=== PATIENT | female | born 1925 | race Caucasian/White ===

== ENCOUNTER 2017-07-22 14:27 | Inpatient (IN) ==
[2017-07-22] MEDS ORDERED: Pantoprazole 40 MG VIAL IVP SCH (18:00)
[2017-07-22] MEDS: Ondansetron 4 MG/2 ML VIAL IVP PRN (18:41)
[2017-07-22] MEDS: *HR* OxyCODONE ER (12 HR) 20 MG TABLET PO SCH (19:41)
[2017-07-22] MEDS ORDERED: *HR* Dabigatran 75 MG CAPSULE PO SCH (21:00)
[2017-07-22] MEDS ORDERED: Mesalamine 250 MG CAPSULE.ER PO ONE (21:30)
[2017-07-22] MEDS ORDERED: Naloxone 0.4 MG/ML INJ IVP PRN (21:39)
[2017-07-22] MEDS: *HR* Amiodarone 200 MG TABLET PO SCH (21:39)
[2017-07-22] MEDS: Ranolazine 500 MG TAB.ER.12H PO SCH (21:40)
[2017-07-22] MEDS: Sennosides/Docusate Sodium TABLET PO SCH (21:40)
--- NOTE | 2017-07-22 22:01 | Internal Med History&Physical ---
Date of Encounter: 07/22/17 Time of Encounter: 18:00 Assessment and Plan (1) Abdominal pain Current visit: Yes Status: Acute Patient presents with report of abdominal pain for the past two months with much worse symptoms within the past three days. Patient states she is barely eating anything due to current N/V. Nutrition consult ordered. NPO status. Will advance diet as tolerated. Patient and daughter report hx of esophagela stricture. Discussed the possibility of an NG tube with the patient and daughter , however patient does not want NG tube at this time. GI consult ordered. Patient is at high risk for further morbidity based on current symptoms and history of GI problems and will be placed as observation status. Qualifiers: Abdominal location: lower abdomen, unspecified Qualified Code(s): R10.30 - Lower abdominal pain, unspecified (2) Intractable nausea and vomiting Current visit: Yes Status: Acute Acute nausea and vomiting for the past three days. CT of the abdomen/pelvis shows no acute abnormality. Diverticulosis. Severe atherosclerosis. Patient to be NPO. IVP Zofran Q6 PRN. GI consult ordered due to patient's hx of esophageal strictures which required procedure to stretch several times. Qualifiers: Vomiting type: cyclical vomiting Qualified Code(s): G43.A1 - Cyclical vomiting, intractable (3) Atrial fibrillation with RVR Current visit: Yes Status: Acute Hx of chronic atrial fibrillation with current acute episodes due to current vomiting. IVP Zofran Q6 PRN. Will continue patient's Pacerone and Ranexa. (4) Colitis Current visit: Yes Status: Chronic Hx of colitis and chronic constipation. Continue patient's mesalamine. (5) GERD (gastroesophageal reflux disease) Current visit: Yes Status: Chronic Hx of chronic gastroesophageal reflux disease. IVP Protonix 40 mg twice a day and IVP Zofran every 6 when necessary. Qualifiers: Esophagitis presence: esophagitis presence not specified Qualified Code(s) : K21.9 - Gastro-esophageal reflux disease without esophagitis (6) CKD (chronic kidney disease) stage 4, GFR 15-29 ml/min Current visit: Yes Status: Chronic Patient presents with GFR of 22 and hx of CKD stage 4. Will use IV fluids judiciously if warranted and avoid nephrotoxic agents. (7) CAD (coronary artery disease) Current visit: Yes Status: Chronic Hx of CAD and two CABG in 1985 and 2000. Patient denies stent placement. Patient placed on continuous cardiac telemetry. Will continue patient's Pradaxa , pravastatin, Pacerone, Ranexa, Lopressor, Imdur, and aspirin therapy. Qualifiers: Coronary Disease-Associated Artery/Lesion type: [place] artery [place] vs. transplanted heart: [place] heart Associated angina: angina presence unspecified Qualified Code(s): I25.10 - Atherosclerotic heart disease of [place] coronary artery without angina pectoris (8) Thyroid disease Current visit: Yes Status: Chronic Hx of chronic thyroid disease. Will continue patient's Synthroid. (9) DVT prophylaxis Current visit: Yes Status: Acute Will continue patient's Pradaxa for DVT prophylaxis. Internal Medicine - H&P: HPI Chief complaint: Abdominal pain/Afib w/RVR Admitted From: Intrahospital Transfer Plans for Post Hospital Care: Home History of present illness: Ms. Wagner is a 89 year old female with medical history of atrial fibrillation, CAD, CHF, GERD, colitis, CTD stage IV, and previous AK presents from [place] [facility] with chief complaint of severe abdominal pain, nausea, vomiting, and A. fib with RVR for the past 3 days. Patient states her stomach has been hurting for approximately 2 months and she has a history of chronic constipation with last bowel movement on Thursday which she describes as slimy and pasty. Patient also reports that her appetite has been severely diminished over the past 3-4 weeks. Patient denies recent illness, fever, chills, chest pain, shortness of breath, unusual bleeding, changes in vision, diarrhea, urinary symptoms, lightheadedness, dizziness, presyncope, or syncope. Past Med Surg Social Fam HX - Past Medical History Source: patient, old records reviewed, obtained from family Medical history: arthritis, atrial fibrillation, coronary artery disease, GERD, hyperlipidemia, hypertension, myocardial infarction, thyroid disease Psychiatric history: no psych history - Past Surgical History Surgical History: coronary bypass (CABG) (1985 and 2000) - Social History Smoking Status: Never smoker Alcohol use: none Drug use: none Current living situation: Home, With Family Activity Level: Independent ambulation, Uses cane/walker Recent Out of Country Travel Within the Last 8 Weeks: No Exposure or Possible Exposure to Illness During Travel: No - Family History Father Race: Family Member Ethnicity: Non- Living Status: Age at : 74 Cause of : [place] Hx Family Cardiac Disorders: Yes ([place], CAD, HTN) Hx Family GI Disorders: Yes (IBS) Mother Race: Family Member Ethnicity: Non- Living Status: Age at : 79 Cause of : [place] Hx Family Cardiac Disorders: Yes ([place]) Brother Race: Family Member Ethnicity: Non- Living Status: Age at : 91 Cause of : [place] Hx Family Cardiac Disorders: Yes (AK) Sister Race: Family Member Ethnicity: Non- Living Status: Age at : 87 Cause of : [place] Hx Family Cardiac Disorders: Yes ([place]) Internal Medicine - H&P: Meds Amiodarone HCl [Pacerone] 100 mg PO BID 07/22/17 [History] Aspirin [Lo-Dose Aspirin EC] 81 mg PO DAILY 07/22/17 [History] Dabigatran [Pradaxa] 75 mg PO BID 07/22/17 [History] Furosemide [Lasix] 20 mg PO DAILY 07/22/17 [History] Isosorbide MONOnitrate (24 HR) [Imdur] 30 mg PO DAILY 07/22/17 [History] Lansoprazole [Prevacid] 30 mg PO BID 07/22/17 [History] Levothyroxine [Synthroid] 75 mcg PO 0630 07/22/17 [History] Loratadine [Claritin] 10 mg PO DAILY 07/22/17 [History] Mesalamine [Delzicol] 400 mg PO BID 07/22/17 [History] Metoprolol Tartrate [Lopressor] 25 mg PO DAILY 07/22/17 [History] Naloxegol Oxalate [Movantik] 12.5 mg PO DAILY 07/22/17 [History] OxyCODONE ER (12 HR) [OxyCONTIN] 20 mg PO Q8HR 07/22/17 [History] Pravastatin Sodium [Pravachol] 80 mg PO DAILY 07/22/17 [History] Ranolazine [Ranexa] 500 mg PO BID 07/22/17 [History] Sennosides/Docusate Sodium [Stool Softener Tablet] 1 each PO BID 07/22/17 [ History] 3 Allergy/AdvReac Type Severity Reaction Status Date / Time lorazepam [From Ativan] Allergy Hallucinati Verified 07/22/17 10:57 ng promethazine [From Phenergan] Allergy See Verified 07/22/17 10:56 Comments acetaminophen AdvReac See Verified 07/22/17 10:57 [From Darvocet-N] Comments propoxyphene AdvReac See Verified 07/22/17 10:57 [From Darvocet-N] Comments All Systems PM: A 10-system review of systems was performed and is negative for pertinent findings except as documented above in the HPI. - Constitutional Constitutional: weakness, no chills, no fever(s), no night sweats - EENT Eyes: no change in vision, no discharge, no pain, no photophobia Ears: no ear discharge, no ear pain, no tinnitus Nose, mouth and throat: no dysphagia, no nasal discharge, no neck pain, no sore throat - Breasts Breasts: as per HPI - Cardiovascular Cardiovascular ROS IM: as per HPI, irregular heart rhythm, no chest pain, no diaphoresis, no dyspnea, no lightheadedness, no palpitations, no syncope - Respiratory Respiratory: no cough, no dyspnea, no wheezing, no excessive phlegm production - Gastrointestinal Gastrointestinal: as per HPI, abdominal pain, constipation (Chronic), nausea, vomiting - Genitourinary Genitourinary: no change in urinary stream, no dysuria, no flank pain, no hematuria Menstruation: as per HPI - Musculoskeletal Musculoskeletal ROS IM: no numbness, no tingling - Integumentary Integumentary IM: no rash, no unusual bruising - Neurological Neurological ROS: no confusion, no convulsions, no focal weakness, no numbness, no tingling, no tremor(s) - Psychiatric Psychiatric: as per HPI - Endocrine Endocrine IM: as per HPI - Hematologic/Lymphatic Hematologic/Lymphatic: no easy bruising - Allergic/Immunologic Allergic/Immunologic: as per HPI - Constitutional Vitals: Temp Pulse Resp BP Pulse Ox 98.4 F 85 16 155/80 98 07/22/17 19:12 07/22/17 19:12 07/22/17 19:12 07/22/17 19:12 07/22/17 19:12 General appearance: Present: cooperative, A&O X 3, pleasant, severe distress, answers questions appropriately - Head Head exam: Present: atraumatic, normocephalic - Eye Eye exam: Present: PERRL, conjuntiva pink, sclera anicteric Pupils: Present: PERRL - ENT ENT exam: Present: normal exam, normal external ear exam - Neck Neck exam general surgery: Present: normal inspection, supple, trachea midline. Absent: lymphadenopathy - Cardiovascular Cardiovascular exam: Present: irregular rhythm - GI/Abdominal GI/Abdominal exam: Present: guarding, normal bowel sounds, soft, tenderness, no peritoneal signs. Absent: distended - Rectal Rectal exam: Present: deferred - Additional comments: exam deferred. - Extremities Exam Extremities exam: Present: warm, radial pulses palpable and symmetrical. Absent : calf tenderness, cyanotic, pedal edema - Back Exam Back exam: Present: normal inspection - Neurological Exam Neurological exam: Present: CN II-XII intact, oriented X3, no focal deficits. Absent: pronater drift, facial droop, speech deficit - Psychiatric Psychiatric exam: Present: normal affect, normal mood - Skin Skin exam: Present: dry, intact Internal Med - H&P Results - Labs CBC & Chem 7: 07/22/17 21:47 - EKG Data EKG shows normal: sinus rhythm - EKG Data Prior EKG available for review: no EKG comments: 07/22/17 22:07 EKG dated 07/22/17 shows sinus rhythm with occasional supraventricular premature complexes, marked right axis deviation, and right bundle branch block. - Diagnostic Studies Chest x-ray Additional comments: 1-View CXR today shows low lung volumes. There is elevation of the right hemidiaphragm. No focal lung infiltrate. No pleural effusion. Platelike atelectasis is noted in the left mid lung field. CT scan - abdomen Additional comments: CT of the abdomen/pelvis today without contrast shows no acute abnormality in the abdomen/pelvis. Diverticulosis. Severe atherosclerosis.
[2017-07-22 22:07] LABS: Albumin 3.1 g/dL (3.5-5.0); Albumin/Globulin Ratio 0.9 (1.1-2.2); Bilirubin,Total 0.8 mg/dL (0.2-1.2); Globulin 3.4 g/dL (2.4-3.5); Total Protein 6.5 g/dL (6.0-8.3)
[2017-07-22] MEDS: Pantoprazole 40 MG VIAL IVP SCH (22:36)
[2017-07-22] MEDS: Lactulose Oral Soln 20 GM/30 ML UDC PO SCH (22:36)
[2017-07-22] MEDS ORDERED: Ondansetron 4 MG/2 ML VIAL IVP ONE (22:46)
[2017-07-23] MEDS ORDERED: *HR* OxyCODONE ER (12 HR) 20 MG TABLET PO SCH
[2017-07-23 00:45] LABS: Bilirubin,Urine Negative (Negative); Blood,Urine Negative (Negative); Clarity,Urine Clear (Clear); Color,Urine Yellow (Yellow); Glucose,Urine (UA) Normal (Normal); Ketones,Urine Negative (Negative); Leukocyte Esterase,Urine Trace (Negative); Nitrite,Urine Negative (Negative); PH,Urine 7.5 pH Units (5.0-8.0); Protein,Urine Trace mg/dL (Neg-Trace); Specific Gravity,Urine 1.017 (1.010-1.025); Urobilinogen,Urine Normal (Normal)
[2017-07-23 00:48] LABS: Bacteria,Urine None Seen per hpf (None-Few); Hyaline Casts,Urine None Seen per lpf (None-Few); RBC,Urine 0-3 per hpf (0-3); Squamous Epithelial Cell,Urine Moderate per lpf (None-Few)
[2017-07-23] MEDS ORDERED: Calcium Gluconate 1,000 MG in D5% in Water 100 ML IVPB ONE (01:40)
--- NOTE | 2017-07-23 01:45 | Event Note ---
Date of Encounter: 07/23/17 Time of Encounter: 01:41 Patient seen and examined with nurse practitioner. Atrial fibrillation with rapid ventricular response currently rate is better controlled with pushes great -looking medications. She has episodes of vomiting related to food and has prior stricture esophagus. Hold pradaxa and GI consultation for further evaluation. She is hyperkalemic and this will be treated
[2017-07-23] MEDS: 0.9 % Sodium Chloride 500 ML IVC SCH (02:12)
[2017-07-23] MEDS: *HR* OxyCODONE ER (12 HR) 20 MG TABLET PO SCH ×2 (02:17→21:16)
[2017-07-23 05:37] LABS: Basophils % 0.5 %; Eosinophils # 0.1 K/mcL (0.0-0.6); Eosinophils % 1.1 %; Hematocrit 31.1 % (35.3-44.9); Hemoglobin 9.4 g/dL (11.5-15.4); Immature Granulocytes % 0.4 % (0-4); Lymphocytes # 0.7 K/mcL (0.6-4.6); Lymphocytes % 12.9 %; Mean Corpuscular HGB Conc 30.2 g/dL (31.6-35.5); Mean Corpuscular Hemoglobin 24.2 pg (28.0-33.3); Mean Corpuscular Volume 80.2 fL (83.0-100.0); Monocytes # 0.6 K/mcL (0.0-1.3); Monocytes % 9.7 %; Neutrophils # 4.3 K/mcL (1.6-8.9); Nucleated Red Blood Cells 0.4 /100 WBC (0); Platelet Count 136 K/mcL (140-400); Red Blood Count 3.88 M/mcL (3.82-4.97); Red Cell Distribution Width 18.6 % (11.5-14.5); Segmented Neutrophils % 75.4 %
[2017-07-23 05:42] LABS: INR 1.3; Prothrombin Time 14.4 Seconds (9.4-12.1)
[2017-07-23 05:44] LABS: Activated Partial Thrombo Time 47.4 Seconds (26.0-36.0)
[2017-07-23 05:45] LABS: Hemoglobin A1C 5.7 %
[2017-07-23 05:52] LABS: Magnesium 1.9 mg/dL (1.6-2.6)
[2017-07-23 06:01] LABS: Calcium 9.3 mg/dL (8.6-10.8)
[2017-07-23 06:38] LABS: Chol/HDL Ratio 3.3 (0-4.9)
[2017-07-23] MEDS: Sennosides/Docusate Sodium TABLET PO SCH ×2 (08:56→21:15)
[2017-07-23] MEDS: Ranolazine 500 MG TAB.ER.12H PO SCH ×2 (08:56→21:14)
[2017-07-23] MEDS: *HR* Amiodarone 200 MG TABLET PO SCH ×2 (08:56→21:16)
[2017-07-23] MEDS: Isosorbide MONOnitrate (24 HR) 30 MG TAB.ER.24H PO SCH (08:56)
[2017-07-23] MEDS: Loratadine 10 MG TABLET PO SCH (08:56)
[2017-07-23] MEDS: Aspirin Enteric Coated 81 MG Tablet PO SCH (08:57)
[2017-07-23] MEDS: Pantoprazole 40 MG VIAL IVP SCH ×2 (08:57→18:46)
[2017-07-23] MEDS ORDERED: Furosemide 20 MG TABLET PO SCH (09:00)
--- NOTE | 2017-07-23 12:50 | Gastroenterology Consult Note ---
<Flako Delaney - Last Filed: 07/23/17 12:48> Date of Encounter: 07/23/17 Time of Encounter: 11:10 - Assessment and plan (1) Dysphagia Current Visit: Yes Status: Acute Assessment and plan: Pt with difficulty swallowing solids. Plan for EGD with possible dilation today. Keep NPO. Qualifiers: Dysphagia type: unspecified Qualified Code(s): R13.10 - Dysphagia, unspecified (2) Nausea & vomiting Current Visit: Yes Status: Acute Assessment and plan: Continue PPI and antiemetics. Plan for EGD today. Qualifiers: Vomiting type: unspecified Vomiting Intractability: non-intractable Qualified Code(s): R11.2 - Nausea with vomiting, unspecified (3) Abdominal pain Current Visit: Yes Status: Acute Assessment and plan: Continue PPI and plan for EGD today to r/o esophagitis, gastritis, duodenitis, PUD, MW tear, or AVM. Qualifiers: Abdominal location: lower abdomen, unspecified Qualified Code(s): R10.30 - Lower abdominal pain, unspecified (4) GERD (gastroesophageal reflux disease) Current Visit: Yes Status: Chronic Qualifiers: Esophagitis presence: esophagitis presence not specified Qualified Code(s) : K21.9 - Gastro-esophageal reflux disease without esophagitis (5) Constipation Current Visit: Yes Status: Acute Assessment and plan: Start daily fiber supplement and MiraLAX twice a day PRN Qualifiers: Constipation type: unspecified constipation type Qualified Code(s): K59.00 - Constipation, unspecified - Time Spent With Patient Total time spent is greater than 50% in coordination of care (as documented) at patient's floor/unit and/or counseling patient: GI History of Present Illness - Data of Consult Patient: new to practice Consult date: 07/23/17 Requesting Physician: Orly Lujan CNP - Consult Narrative Reason for consult: Nausea and vomiting History of present illness: Ms. Wagner is a 89 year old female with PMHx of arthritis, Afib, CAD, GERD, HLD, HTN, [place], who presented from [place] ED with c/o abdominal pain, nausea, and vomiting. She reports abdominal pain started 2 months ago. She reports history of constipation with last BM on Thursday. She also states her appetite has been decreased over the past 3-4 weeks. She denies fever, chills, chest pain, SOB, hematemesis, diarrhea, melena, or hematochezia. She has been having nausea and occasional vomiting as well. She reports difficulty swallowing solids but is able to swallow liquids. She has been using Ensure supplements. Procedures: No record NSAIDs: ASA Anticoagulation: Pradaxa Past Med Surg Social Fam HX - Past Medical History Medical history: arthritis, atrial fibrillation, coronary artery disease, GERD, hyperlipidemia, hypertension, myocardial infarction, thyroid disease Psychiatric history: no psych history - Past Surgical History Surgical History: coronary bypass (CABG) (1985 and 2000) - Social History Smoking Status: Never smoker Alcohol use: none Drug use: none - Family History Father Race: Family Member Ethnicity: Non- Living Status: Age at : 74 Cause of : [place] Hx Family Cardiac Disorders: Yes ([place], CAD, HTN) Hx Family GI Disorders: Yes (IBS) Mother Race: Family Member Ethnicity: Non- Living Status: Age at : 79 Cause of : [place] Hx Family Cardiac Disorders: Yes ([place]) Brother Race: Family Member Ethnicity: Non- Living Status: Age at : 91 Cause of : [place] Hx Family Cardiac Disorders: Yes ([place]) Sister Race: Family Member Ethnicity: Non- Living Status: Age at : 87 Cause of : [place] Hx Family Cardiac Disorders: Yes ([place]) - Gastrointestinal Gastrointestinal: Present: as per HPI - Constitutional Constitutional: as per HPI - EENT Eyes: as per HPI Ears: Present: as per HPI Nose, mouth and throat: Present: as per HPI - Cardiovascular Cardiovascular ROS: Present: as per HPI - Respiratory Respiratory IM: Present: as per HPI - Genitourinary Genitourinary: Absent: change in color, Urinary frequency - Neurological ROS Neurological GI: Present: as per HPI - Hematologic/Lymphatic Hematologic/Lymphatic pediatric: Present: as per HPI - Musculoskeletal Musculoskeletal ROS GI: Present: as per HPI - Integumentary Integumentary GI: Present: as per HPI - Psychiatric ROS Psychiatric GI: Present: as per HPI - Endocrine Endocrine IM: Present: as per HPI - Constitutional Vitals: Temp Pulse Resp BP Pulse Ox 97.6 F 80 16 159/74 98 07/23/17 11:40 07/23/17 11:40 07/23/17 11:40 07/23/17 11:40 07/23/17 11:40 General appearance: Present: cooperative, A&O X 3, no acute distress, answers questions appropriately - Head Head exam: Present: atraumatic, normocephalic - Eye Eye exam: Present: normal appearance, sclera anicteric - ENT ENT exam: Present: mucous membranes dry - Neck Neck exam general surgery: Present: normal inspection, trachea midline - Respiratory Respiratory exam: Present: decreased breath sounds, CTAB - Cardiovascular Cardiovascular exam: Present: RRR, +S1, +S2 - GI/Abdominal GI/Abdominal exam: Present: soft, tenderness, no peritoneal signs. Absent: distended, firm, guarding - Rectal Rectal exam: Present: deferred - Extremities Exam Extremities exam: Present: warm - Neurological Exam Neurological exam: Present: no focal deficits - Psychiatric Psychiatric exam: Present: normal affect, normal mood - Skin Skin exam: Present: dry, intact, normal color, warm Results - Labs CBC & Chem 7: 07/23/17 03:42 07/23/17 03:42 Labs: Last Result ESR 59 mm/hr (0-15) H 07/22/17 21:47 Calcium 9.3 mg/dL (8.6-10.8) 07/23/17 03:42 C-Reactive Protein 10 mg/L (Less than 5) H 07/22/17 21:47 Triglycerides 79 mg/dL (< 150) 07/23/17 03:42 Entire Visit Hgb 9.4 g/dL (11.5-15.4) L D 07/23/17 03:42 Hct 31.1 % (35.3-44.9) L 07/23/17 03:42 PT 14.4 Seconds (9.4-12.1) H 07/23/17 03:42 Total Bilirubin 0.8 mg/dL (0.2-1.2) 07/22/17 21:47 AST 41 Units/L (5-34) H 07/22/17 21:47 ALT 44 Units/L (0-55) 07/22/17 21:47 Amylase 48 Units/L (25-125) 07/22/17 21:47 Lipase 28 Units/L (8-78) 07/22/17 21:47 - ABG ABG results: PT/INR, D-dimer PT 14.4 Seconds (9.4-12.1) H 07/23/17 03:42 Consult Discharge Plan - Plan Referrals: Alexandra Lugo CNP [Advanced Practice Nurse] - 08/07/17 10:30 am Nick Unger DO [Non-Partnered Physician] - 10/07/17 9:30 am <Emily Bui - Last Filed: 07/23/17 18:23> Date of Encounter: 07/23/17 Time of Encounter: 18:00 - Time Spent With Patient Total time spent is greater than 50% in coordination of care (as documented) at patient's floor/unit and/or counseling patient: GI History of Present Illness - Data of Consult Requesting Physician: Orly Lujan CNP - Consult Narrative History of present illness: Ms. Wagner is a 89 year old female - Constitutional Vitals: Temp Pulse Resp BP Pulse Ox 98.0 F 80 16 168/99 94 07/23/17 17:52 07/23/17 17:52 07/23/17 17:52 07/23/17 17:52 07/23/17 17:52 Results - Labs CBC & Chem 7: 07/23/17 03:42 07/23/17 03:42 Labs: Last Result ESR 59 mm/hr (0-15) H 07/22/17 21:47 Calcium 9.3 mg/dL (8.6-10.8) 07/23/17 03:42 C-Reactive Protein 10 mg/L (Less than 5) H 07/22/17 21:47 Triglycerides 79 mg/dL (< 150) 07/23/17 03:42 Entire Visit Hgb 9.4 g/dL (11.5-15.4) L D 07/23/17 03:42 Hct 31.1 % (35.3-44.9) L 07/23/17 03:42 PT 14.4 Seconds (9.4-12.1) H 07/23/17 03:42 Total Bilirubin 0.8 mg/dL (0.2-1.2) 07/22/17 21:47 AST 41 Units/L (5-34) H 07/22/17 21:47 ALT 44 Units/L (0-55) 07/22/17 21:47 Amylase 48 Units/L (25-125) 07/22/17 21:47 Lipase 28 Units/L (8-78) 07/22/17 21:47 - ABG ABG results: PT/INR, D-dimer PT 14.4 Seconds (9.4-12.1) H 07/23/17 03:42 - Attending Attestation I examined this patient and my medical decision-making was reviewed with the Resident Physician. I agree with the documented findings, disposition and treatment plan as described except to the extent set forth below.
--- NOTE | 2017-07-23 13:46 | Cardiology Consult Note ---
Date of Encounter: 07/23/17 Time of Encounter: 13:00 Assessment and Plan (1) Nausea & vomiting Current Visit: Yes Status: Acute Per cardiology: -Admitted with nausea and vomiting. -Reports poor oral intake at home. -History of esophageal stricture. -GI consulted and plan for EGD. -Management per primary and GI services. Qualifiers: Vomiting type: unspecified Vomiting Intractability: non-intractable Qualified Code(s): R11.2 - Nausea with vomiting, unspecified (2) Atrial tachycardia Current Visit: Yes Status: Acute Per cardiology: -Admitted for intractable nausea and vomiting. -Telemetry reviewed with episodes of tachycardia noted. -Tele strips reviewed with and Dr.John Grissom and noted to be atrial tachycardia. -Patient reports feels short of breath when tachycardic. -On lopressor 25mg daily (BID at home) and amiodarone 100mg BID. -Will increase lopressor to 25mg TID. (3) Atrial fibrillation Current Visit: Yes Status: Chronic Per cardiology: -Known PAF. -ON amiodarone and beta jesus. -ON pradaxa for anticoagulation (currently on hold for EGD). Chads 2 vasc score 6 (age, gender, HTN, vascular disease, and CHF). -Average HR per telemetry noted to be 87, sinus rhythm. Intermittent atrial tachycardia noted. -Patient reports previously followed with cardiology in [place]. -Will obtain records from previous cardiology. Qualifiers: Atrial fibrillation type: paroxysmal Qualified Code(s): I48.0 - Paroxysmal atrial fibrillation (4) CAD (coronary artery disease) Current Visit: Yes Status: Chronic Per cardiology: -Known CAD. Patient reports CABG and repeat CABG in [place]. -Denies chest pain. -On asa, statin, beta jesus, imdur, and ranexa. -Reports recent stress and echo. -Will obtain records from previous cardiology. Qualifiers: Coronary Disease-Associated Artery/Lesion type: [place] artery [place] vs. transplanted heart: [place] heart Associated angina: without angina Qualified Code(s): I25.10 - Atherosclerotic heart disease of [place] coronary artery without angina pectoris (5) CKD (chronic kidney disease) stage 4, GFR 15-29 ml/min Current Visit: Yes Status: Chronic Per cardiology: -Patient reports known CKD. -Creatinine on admission 2.09. -Creatinine today 1.66. -Management per primary service. Discussion w patient/family: The assessment and plan as outlined above was discussed with the patient and/or family members who expressed understanding and agreement. All questions were answered. Thank you for involving us in the care of your patient. Please call with any questions. Discussed and reviewed with . History of Present Illness Consult date: 07/23/17 Requesting physician: Orly Lujan Consult reason: a.fib RVR Chief complaint: nausea, vomiting History of present illness: Ms. Wagner is a 89 year old female with a relevant past medical history of CO , CAD s/p CABG and repeat CABG, atrial fibrillation, CHF, GERD, CKD, and esophageal stricture. Patient is from [place] and recently moved to [place], [place] to live with her daughter. Patient presented to [facility] with complaints of nausea and vomiting. Patient states this is similar to when she had previous esophageal strictures. During hospital stay, patient was noted to have intermittent atrial fibrillation with RVR. Cardiology has been consulted. Patient reports known history of atrial fibrillation. Patient also reports was recently admitted to [facility] 9 days ago. Patient and daughter report had a.fib RVR during recent admission and state was difficult to rate control. Patient states when she is in a.fib she feels short of breath. Denies palpitations or fluttering. Patient denies chest pain. Patient states has noticed worsening fatigue over the past 6 months. Of note, GI plans for EGD today. Past Med Surg Social Fam HX - Past Medical History Attestation: Yes The following information was validated with the patient. Source: patient, old records reviewed, obtained from family Medical history: arthritis, atrial fibrillation, coronary artery disease, GERD, hyperlipidemia, hypertension, myocardial infarction, thyroid disease Psychiatric history: no psych history - Past Surgical History Surgical History: coronary bypass (CABG) (1985 and 2000) - Social History Smoking Status: Never smoker Alcohol use: none Drug use: none - Family History Father Race: Family Member Ethnicity: Non- Living Status: Age at : 74 Cause of : CO Hx Family Cardiac Disorders: Yes ([place], CAD, HTN) Hx Family GI Disorders: Yes (IBS) Mother Race: Family Member Ethnicity: Non- Living Status: Age at : 79 Cause of : [place] Hx Family Cardiac Disorders: Yes (CO) Brother Race: Family Member Ethnicity: Non- Living Status: Age at : 91 Cause of : [place] Hx Family Cardiac Disorders: Yes (CO) Sister Race: Family Member Ethnicity: Non- Living Status: Age at : 87 Cause of : [place] Hx Family Cardiac Disorders: Yes (CO) Medications and Allergies Amiodarone HCl [Pacerone] 100 mg PO BID 07/22/17 [History] Aspirin [Lo-Dose Aspirin EC] 81 mg PO DAILY 07/22/17 [History] Dabigatran [Pradaxa] 75 mg PO BID 07/22/17 [History] Furosemide [Lasix] 20 mg PO DAILY 07/22/17 [History] Isosorbide MONOnitrate (24 HR) [Imdur] 30 mg PO DAILY 07/22/17 [History] Lansoprazole [Prevacid] 30 mg PO BID 07/22/17 [History] Levothyroxine [Synthroid] 75 mcg PO QAM 07/22/17 [History] Loratadine [Claritin] 10 mg PO DAILY 07/22/17 [History] Mesalamine [Delzicol] 400 mg PO BID 07/22/17 [History] Metoprolol Tartrate [Lopressor] 25 mg PO BID 07/22/17 [History] Naloxegol Oxalate [Movantik] 12.5 mg PO DAILY 07/22/17 [History] OxyCODONE ER (12 HR) [OxyCONTIN] 20 mg PO Q8HR 07/22/17 [History] Pravastatin Sodium [Pravachol] 80 mg PO DAILY 07/22/17 [History] Ranolazine [Ranexa] 500 mg PO BID 07/22/17 [History] Sennosides/Docusate Sodium [Stool Softener Tablet] 1 each PO BID 07/22/17 [ History] 3 Allergy/AdvReac Type Severity Reaction Status Date / Time lorazepam [From Ativan] Allergy Hallucinati Verified 07/22/17 10:57 ng promethazine [From Phenergan] Allergy See Verified 07/22/17 10:56 Comments acetaminophen AdvReac See Verified 07/22/17 10:57 [From Darvocet-N] Comments propoxyphene AdvReac See Verified 07/22/17 10:57 [From Eveline] Comments All Systems Review: A 10-system review of systems was performed and is negative for pertinent findings except as documented above in the HPI. - Cardiovascular Cardiovascular: as per HPI, dyspnea at rest, dyspnea on exertion, irregular heart rhythm - Gastrointestinal Gastrointestinal: nausea Physical Examination Vital Signs, Last 4 Hours Temp Pulse Resp BP Pulse Ox 07/23/17 11:40 97.6 F 80 16 159/74 98 General: Conversant, No Apparent Distress HEENT: Atraumatic, Normocephaly, Mucus Membranes Moist Neck: No JVD, Normal carotid pulses Cardiac: Reg Rate and Rhythm, Normal S1 and S2, No Murmur Lungs: Normal Breath Sounds, No Wheeze, Rales, Rhonchi Neuro: Alert and responsive, No focal deficits noted Abdomen: Soft, Non-Tender Skin: No rashes noted on visualized skin Musculoskeletal: No Chest Wall Tenderness Extremities: No Clubbing, No Cyanosis, No Edema, Normal Pulses Results 07/23/17 03:42 07/23/17 03:42 Lab Results Active Medications Amiodarone HCl (Cordarone) 100 mg PO BID ELIA Stop: 01/21/18 21:01 Last Admin: 07/23/17 08:56 Dose: 100 mg Aspirin (Aspirin Ec) 81 mg PO DAILY ELIA Stop: 01/22/18 09:01 Last Admin: 07/23/17 08:57 Dose: 81 mg Atorvastatin Calcium (Lipitor) 20 mg PO DAILY ELIA Stop: 01/22/18 09:01 Last Admin: 07/23/17 08:55 Dose: 20 mg Sodium Chloride (0.9 % Sodium Chloride) 500 mls @ 40 mls/hr IVC .[id number] ELIA Stop: 01/22/18 01:46 Last Admin: 07/23/17 02:12 Dose: 40 mls/hr Isosorbide Mononitrate (Imdur) 30 mg PO DAILY ELIA Stop: 01/22/18 09:01 Last Admin: 07/23/17 08:56 Dose: 30 mg Lactulose (Lactulose) 20 gm PO HS ELIA Stop: 01/21/18 22:01 Last Admin: 07/22/17 22:36 Dose: 20 gm Levothyroxine Sodium (Synthroid) 75 mcg PO 0630 ELIA Stop: 01/22/18 06:31 Last Admin: 07/23/17 05:51 Dose: Not Given Loratadine (Claritin) 10 mg PO DAILY ELIA PRN Reason: Protocol Stop: 01/22/18 09:01 Last Admin: 07/23/17 08:56 Dose: 10 mg Naloxone HCl (Narcan) 0.4 mg IVP Q2MIN PRN PRN Reason: Opioid Reversal Stop: 01/21/18 21:40 Ondansetron HCl (Zofran) 4 mg IVP Q8HR PRN PRN Reason: Nausea And Vomiting Stop: 01/21/18 17:51 Last Admin: 07/22/17 18:41 Dose: 4 mg Oxycodone HCl (Oxycontin) 20 mg PO Q12HR ELIA Stop: 01/22/18 18:01 Pantoprazole Sodium (Protonix) 40 mg IVP BIDAC [facility] Stop: 01/21/18 21:48 Last Admin: 07/23/17 08:57 Dose: 40 mg Pharmacy Profile Note (Patient Taking Own Medication) 1 each PO BID [facility] Stop: 01/22/18 09:01 Ranolazine (Ranexa) 500 mg PO BID [facility] Stop: 01/21/18 21:01 Last Admin: 07/23/17 08:56 Dose: 500 mg Senna/Docusate Sodium (Senna Plus) 1 each PO BID ELIA PRN Reason: Protocol Stop: 01/21/18 21:01 Last Admin: 07/23/17 08:56 Dose: 1 each Laboratory Tests 07/22/17 07/22/17 07/23/17 11:18 21:47 03:42 Hgb 9.4 L D Potassium Creatinine 2.09 H 1.88 H Magnesium 07/23/17 07/23/17 03:42 03:42 Hgb Potassium 5.0 H Creatinine 1.66 H Magnesium 1.9 - Imaging and Cardiology Chest Xray: report reviewed - EKG Interpretation EKG results cardiology: personally reviewed (ECG with Sinus rhythm, bundle branch block.), other (Telemetry reviewed with average HR previous 12 hours noted to be 87, mostly SR with intermittent atrial fibrillation with RVR. PVCs noted.) Consult Discharge Plan - Plan Referrals: NONE,PCP [Primary Care Provider] -
--- NOTE | 2017-07-23 14:29 | Internal Med Progress Note ---
Date of Encounter: 07/23/17 Time of Encounter: 08:30 - Assessment and plan (1) Abdominal pain Current Visit: Yes Status: Acute Assessment and plan: Sigrid Avelar is a 89 y/o female with PMH atrial fibrillation, CKD, hypothyroidism and hypertension who presented to [facility] [place] on 07/22/2017 with complaints of nausea, vomiting and abdominal pain. She was placed in observation status for further workup and treatment. 1. Abdominal pain: Presented with abdominal pain and nausea vomiting for 4 days prior to presentation. Had recent admission to outside hospital for approx 9 days for similar sx's with no apparent cause found. Now with recurrent sx's although patient denies ABD pain. ABD CT unremarkable. Etiology unknown at this time; symptoms appear to wax and wane. Keep nothing by mouth. GI consulted 2. Atrial fibrillation: per hx. with intermittent rate control. Having breakthrough RVR with exertion. Continue home BB, amiodarone. Resume Pradaxa once EGD complete. Cardiology consulted for frequent breakthrough RVR 3. Esophageal stricture: per hx with dilations in the past. Now with difficulty tolerating PO. GI consulted. EGD planned for 07/23 4. CAD: with hx CABG. Denies chest pain. Cont home ASA, nitrate, BB, ranexa 5. CKD: per hx. Cr 2.9 at OSH, improved to 1.6 which is consistent with creatinine in 2016. Avoid nephrotoxic agents as possible. Intermittent monitor renal function. 6. DVT prophylaxis: Heparin. Resume home Pradaxa once cleared by GI. Qualifiers: Abdominal location: lower abdomen, unspecified Qualified Code(s): R10.30 - Lower abdominal pain, unspecified (2) Esophageal stricture Current Visit: Yes Status: Acute (3) Atrial fibrillation Current Visit: Yes Status: Acute Qualifiers: Atrial fibrillation type: chronic Qualified Code(s): I48.2 - Chronic atrial fibrillation (4) CAD (coronary artery disease) Current Visit: Yes Status: Chronic Qualifiers: Coronary Disease-Associated Artery/Lesion type: [place] artery [place] vs. transplanted heart: [place] heart Associated angina: angina presence unspecified Qualified Code(s): I25.10 - Atherosclerotic heart disease of [place] coronary artery without angina pectoris (5) DVT prophylaxis Current Visit: Yes Status: Acute - Subjective Interval history: Seen and examined at bedside. Patient is due to ma. Information obtained from chart review, patient and daughter at bedside. Dr. garner patient had long stay at [facility] for approximately week and a half rated patient was discharged to daughter's home 4 days ago and is now presenting with recurrent symptoms which are abdominal pain, nausea, vomiting and inability to tolerate by mouth. All my exam patient says she feels better. Has some abdominal tenderness but no pain. No nausea or vomiting. Able to take pills without difficulty. - Constitutional Vitals: Temp Pulse Resp BP Pulse Ox 97.6 F 80 16 159/74 98 07/23/17 11:40 07/23/17 11:40 07/23/17 11:40 07/23/17 11:40 07/23/17 11:40 General appearance: Present: cooperative, A&O X 3, pleasant, severe distress, answers questions appropriately - Head Head exam: Present: atraumatic, normocephalic - Eye Eye exam: Present: PERRL, conjuntiva pink, sclera anicteric Pupils: Present: PERRL - Neck Neck exam general surgery: Present: supple, trachea midline. Absent: lymphadenopathy - Respiratory Respiratory exam: Present: CTAB. Absent: accessory muscle use, rales, rhonchi, wheezes - Cardiovascular Cardiovascular exam: Present: +S1, +S2. Absent: diastolic murmur, gallop, irregular rhythm, rubs, systolic murmur, tachycardia - GI/Abdominal GI/Abdominal exam: Present: normal bowel sounds, soft, no peritoneal signs. Absent: distended, tenderness - Extremities Exam Extremities exam: Present: warm, radial pulses palpable and symmetrical. Absent : calf tenderness, cyanotic, pedal edema - Neurological Exam Neurological exam: Present: CN II-XII intact, oriented X3, no focal deficits. Absent: pronater drift, facial droop, speech deficit - Skin Skin exam: Present: dry, intact Internal Medicine: Result - Labs CBC & Chem 7: 07/23/17 03:42 07/23/17 03:42 Labs: Short CBC 07/23/17 Range/Units 03:42 WBC 5.7 (4.3-11.1) K/mcL Hgb 9.4 L D (11.5-15.4) g/dL Hct 31.1 L (35.3-44.9) % Plt Count 136 L (140-400) K/mcL Neutrophils # 4.3 (1.6-8.9) K/mcL BMP 07/22/17 07/23/17 21:47 03:42 Sodium 138 141 Potassium 5.0 H 5.0 H Chloride 100 101 Carbon Dioxide 29 32 H BUN 22 H 19 Creatinine 1.88 H 1.66 H Glucose 96 102 H Calcium 9.0 9.3 Liver Function 07/22/17 Range/Units 21:47 Total Bilirubin 0.8 (0.2-1.2) mg/dL AST 41 H (5-34) Units/L ALT 44 (0-55) Units/L Alkaline Phosphatase 85 (38-126) Units/L Albumin 3.1 L (3.5-5.0) g/dL Urine 07/23/17 Range/Units 00:30 Urine Color Yellow (Yellow) Urine Clarity Clear (Clear) Urine pH 7.5 (5.0-8.0) pH Units Ur Specific [place] 1.017 (1.010-1.025) Urine Protein Trace (Neg-Trace) mg/dL Urine Glucose (UA) Normal (Normal) mg/dL - ABG Interpretation ABG results: PT/INR, D-dimer PT 14.4 Seconds (9.4-12.1) H 07/23/17 03:42 Consult Discharge Plan - Plan Referrals: NONE,PCP [Primary Care Provider] -
--- NOTE | 2017-07-23 15:31 | Electrocardiograph Report ---
[address] [place], [place] [address] Test Date: 2017-07-22 Pat Name: Sigrid Wagner Department: 113 Room: 3B11 Gender: F Carton Filler: : 1925 Requested By: Orly Lujan Order Number: [id number] Reading MD: Rodolfo Grissom Measurements Intervals [place] Rate: 85 P: 90 WA: 154 QRS: 101 QRSD: 143 T: 0 QT: 405 QTc: 448 Interpretive Statements SINUS RHYTHM WITH OCCASIONAL SUPRAVENTRICULAR PREMATURE COMPLEXES MARKED RIGHT AXIS DEVIATION RIGHT BUNDLE BRANCH BLOCK Electronically Signed On 07-23-2017 15:30:03 EDT by Rodolfo Grissom
[2017-07-23] MEDS: MESALAMINE 400 MG PO SCH ×2 (15:40→21:15)
[2017-07-23] MEDS ORDERED: *HR* FentaNYL (PF) 100 MCG/2 ML VIAL ONE (17:50)
[2017-07-23] MEDS ORDERED: *HR* Midazolam HCl 5 MG/5 ML VIAL IVP ONE (17:50)
[2017-07-23] MEDS ORDERED: *HR* FentaNYL (PF) 100 MCG/2 ML VIAL IVP PRN (17:56)
[2017-07-23] MEDS ORDERED: *HR* Midazolam HCl 5 MG/5 ML VIAL IVP PRN (17:56)
[2017-07-23] MEDS ORDERED: Tetracaine/Benzocaine/Butamben 200MG/SPRAY (100SPY/BOT) MM ONE (17:56)
[2017-07-23] MEDS ORDERED: Simethicone 40 MG/0.6 ML MLS IR ONE (17:56)
[2017-07-23] MEDS ORDERED: *HR* Metoprolol 5 MG/5 ML VIAL IVP ONE ×2 (18:07→18:10)
[2017-07-23] MEDS: Lactulose Oral Soln 20 GM/30 ML UDC PO SCH (21:14)
[2017-07-23] MEDS: *HR* Heparin 5,000 UNIT/ML VIAL SQ SCH (22:52)
[2017-07-24] MEDS: Ondansetron 4 MG/2 ML VIAL IVP PRN (01:08)
[2017-07-24] MEDS ORDERED: 0.9 % Sodium Chloride 250 ML IVC ONE (01:28)
[2017-07-24] MEDS ORDERED: 0.9 % Sodium Chloride 250 ML ONE (01:34)
[2017-07-24 04:45] LABS: Basophils % 0.4 %; Eosinophils # 0.2 K/mcL (0.0-0.6); Eosinophils % 3.5 %; Hematocrit 29.8 % (35.3-44.9); Hemoglobin 8.9 g/dL (11.5-15.4); Immature Granulocytes % 0.4 % (0-4); Lymphocytes # 0.7 K/mcL (0.6-4.6); Lymphocytes % 14.7 %; Mean Corpuscular HGB Conc 29.9 g/dL (31.6-35.5); Mean Corpuscular Hemoglobin 24.1 pg (28.0-33.3); Mean Corpuscular Volume 80.5 fL (83.0-100.0); Monocytes # 0.5 K/mcL (0.0-1.3); Monocytes % 10.5 %; Neutrophils # 3.2 K/mcL (1.6-8.9); Platelet Count 132 K/mcL (140-400); Red Cell Distribution Width 18.4 % (11.5-14.5); Segmented Neutrophils % 70.5 %
[2017-07-24 05:00] LABS: Albumin 2.6 g/dL (3.5-5.0); Albumin/Globulin Ratio 0.8 (1.1-2.2); Bilirubin,Total 0.7 mg/dL (0.2-1.2); Calcium 8.6 mg/dL (8.6-10.8); Globulin 3.1 g/dL (2.4-3.5); Potassium 4.9 mEq/L (3.5-4.5); Total Protein 5.7 g/dL (6.0-8.3)
[2017-07-24] MEDS: *HR* Heparin 5,000 UNIT/ML VIAL SQ SCH ×2 (06:28→13:48)
[2017-07-24] MEDS: *HR* OxyCODONE ER (12 HR) 20 MG TABLET PO SCH ×2 (06:31→17:31)
[2017-07-24] MEDS: 0.9 % Sodium Chloride 500 ML IVC SCH (08:40)
[2017-07-24] MEDS: Sennosides/Docusate Sodium TABLET PO SCH (09:22)
--- NOTE | 2017-07-24 09:27 | Internal Med Progress Note ---
Date of Encounter: 07/24/17 Time of Encounter: 09:03 - Assessment and plan (1) Abdominal pain Current Visit: Yes Status: Acute Assessment and plan: Sigrid Wagner is a 89 y/o female with PMH atrial fibrillation, CKD, hypothyroidism and hypertension who presented to [facility] on 07/22/2017 with complaints of nausea, vomiting and abdominal pain. She was placed in observation status for further workup and treatment. 1. Abdominal pain: Presented with abdominal pain and nausea vomiting for 4 days prior to presentation. Had recent admission to outside hospital for approx 9 days for similar sx's with no apparent cause found. ABD CT unremarkable. Etiology unknown at this time; symptoms appear to wax and wane. 07/23/2017 EGD with diffuse gastric atrophy (biopsies taken). Cont IV PPI, advance diet as tolerated 2. Atrial fibrillation: per hx. with intermittent rate control. Having breakthrough RVR with exertion. Evaluated by Cardiology who increased BB to TID. Continue BB, amiodarone, pradaxa 3. Esophageal stricture: per hx with dilations in the past. Now with difficulty tolerating PO. EGD without evidence of stricture. Now tolerating PO without difficulty. 4. CAD: with hx CABG. Denies chest pain. Cont home ASA, nitrate, BB, ranexa 5. CKD: per hx. Cr 2.9 at OSH, improved to 1.6 which is consistent with creatinine in 2016. Avoid nephrotoxic agents as possible. Intermittent monitor renal function. 6. Chronic pain: per hx. On Oxycontin every 8 hours at home (OARRS verified and she does have active rx for TID Oxycontin). Daughter requesting Pain Management consult. Dose decreased to Q 12 hr until seen by Pain management. 7. Loose stool: in the setting of senna and lactulose. Hold laxatives, check c. diff if loose stools persist without laxatives. 8. DVT prophylaxis: Pradaxa. Qualifiers: Abdominal location: lower abdomen, unspecified Qualified Code(s): R10.30 - Lower abdominal pain, unspecified (2) Esophageal stricture Current Visit: Yes Status: Acute (3) Atrial fibrillation Current Visit: Yes Status: Chronic Qualifiers: Atrial fibrillation type: paroxysmal Qualified Code(s): I48.0 - Paroxysmal atrial fibrillation (4) CAD (coronary artery disease) Current Visit: Yes Status: Chronic Qualifiers: Coronary Disease-Associated Artery/Lesion type: [place] artery [place] vs. transplanted heart: [place] heart Associated angina: without angina Qualified Code(s): I25.10 - Atherosclerotic heart disease of [place] coronary artery without angina pectoris (5) DVT prophylaxis Current Visit: Yes Status: Acute - Subjective Interval history: Seen and examined at bedside. Patient says she feels better today, no abdominal pain. Says she wants to eat. Daughter at bedside and reports multiple loose, watery stools yesterday. Daughter is also requesting Pain management consult for chronic pain - Constitutional Vitals: Temp Pulse Resp BP Pulse Ox 97.7 F 77 14 135/69 100 07/24/17 07:15 07/24/17 07:15 07/24/17 07:15 07/24/17 07:15 07/24/17 07:15 General appearance: Present: cooperative, A&O X 3, pleasant, answers questions appropriately - Head Head exam: Present: atraumatic, normocephalic - Eye Eye exam: Present: PERRL, conjuntiva pink, sclera anicteric Pupils: Present: PERRL - Neck Neck exam general surgery: Present: supple, trachea midline. Absent: lymphadenopathy - Respiratory Respiratory exam: Present: CTAB. Absent: accessory muscle use, rales, rhonchi, wheezes - Cardiovascular Cardiovascular exam: Present: irregular rhythm, +S1, +S2. Absent: gallop, rubs Additional comments: + murmur - GI/Abdominal GI/Abdominal exam: Present: normal bowel sounds, soft, no peritoneal signs. Absent: distended, tenderness - Extremities Exam Extremities exam: Present: warm, radial pulses palpable and symmetrical. Absent : calf tenderness, cyanotic, pedal edema - Neurological Exam Neurological exam: Present: CN II-XII intact, oriented X3, no focal deficits. Absent: pronater drift, facial droop, speech deficit - Skin Skin exam: Present: dry, intact Internal Medicine: Result - Labs CBC & Chem 7: 07/24/17 04:11 07/24/17 04:11 Labs: Short CBC 07/24/17 Range/Units 04:11 WBC 4.6 (4.3-11.1) K/mcL Hgb 8.9 L (11.5-15.4) g/dL Hct 29.8 L (35.3-44.9) % Plt Count 132 L (140-400) K/mcL Neutrophils # 3.2 (1.6-8.9) K/mcL BMP 07/24/17 04:11 Sodium 137 Potassium 4.9 H Chloride 103 Carbon Dioxide 29 BUN 17 Creatinine 1.49 H Glucose 81 Calcium 8.6 Liver Function 07/24/17 Range/Units 04:11 Total Bilirubin 0.7 (0.2-1.2) mg/dL AST 26 (5-34) Units/L ALT 32 (0-55) Units/L Alkaline Phosphatase 70 (38-126) Units/L Albumin 2.6 L (3.5-5.0) g/dL - ABG Interpretation ABG results: PT/INR, D-dimer PT 14.4 Seconds (9.4-12.1) H 07/23/17 03:42 Consult Discharge Plan - Plan Referrals: Alexandra Lugo CNP [Advanced Practice Nurse] - 08/07/17 10:30 am Nick Unger DO [Non-Partnered Physician] - 10/07/17 9:30 am
[2017-07-24] MEDS: Pantoprazole 40 MG VIAL IVP SCH ×2 (09:29→17:31)
[2017-07-24] MEDS: Loratadine 10 MG TABLET PO SCH (09:30)
[2017-07-24] MEDS: MESALAMINE 400 MG PO SCH ×2 (09:30→20:10)
[2017-07-24] MEDS: *HR* Amiodarone 200 MG TABLET PO SCH ×2 (09:30→20:09)
[2017-07-24] MEDS: Aspirin Enteric Coated 81 MG Tablet PO SCH (09:30)
[2017-07-24] MEDS: Ranolazine 500 MG TAB.ER.12H PO SCH ×2 (09:30→20:09)
[2017-07-24] MEDS: Isosorbide MONOnitrate (24 HR) 30 MG TAB.ER.24H PO SCH (09:30)
--- NOTE | 2017-07-24 12:39 | Cardiology Progress Note ---
Date of Encounter: 07/24/17 Time of Encounter: 11:00 Assessment and Plan (1) Nausea & vomiting Current Visit: Yes Status: Acute Per cardiology: -Admitted with nausea and vomiting. -Reports poor oral intake at home. -History of esophageal stricture. -Management per primary and GI services. -Of note, Hemoglobin in ER noted to be 11, hemoglobin today 8.9. Management of anemia per primary service. Qualifiers: Vomiting type: unspecified Vomiting Intractability: non-intractable Qualified Code(s): R11.2 - Nausea with vomiting, unspecified (2) Atrial tachycardia Current Visit: Yes Status: Acute Per cardiology: -Admitted for intractable nausea and vomiting. -Telemetry reviewed with episodes of tachycardia noted. -Tele strips reviewed with and Dr.John Grissom and noted to be atrial tachycardia. -Patient reports feels short of breath when tachycardic. -Lopressor was increased to TID. -On amiodarone 100mg BID. -BPs 90-130 systolic. Family reports unable to tolerate higher doses of beta jesus due to hypotension. -Per discussion with , cardiology will sign off. Anticipate atrial tachycardia will lessen when she recovers from GI illness. -Cardiology will sign off and will follow in outpatient setting. Follow up set. (3) Atrial fibrillation Current Visit: Yes Status: Chronic Per cardiology: -Known PAF. -ON amiodarone and beta jesus. -ON pradaxa for anticoagulation (currently on hold for EGD). Chads 2 vasc score 6 (age, gender, HTN, vascular disease, and CHF). -Average HR per telemetry noted to be 92, sinus rhythm. Intermittent atrial tachycardia noted. -Patient reports previously followed with cardiology in [place]. -Will obtain records from previous cardiology. -Recommend retarting pradaxa when ok by GI. Qualifiers: Atrial fibrillation type: paroxysmal Qualified Code(s): I48.0 - Paroxysmal atrial fibrillation (4) CAD (coronary artery disease) Current Visit: Yes Status: Chronic Per cardiology: -Known CAD. Patient reports CABG and repeat CABG in [place]. -Denies chest pain. -On asa, statin, beta jesus, imdur, and ranexa. -Reports recent stress and echo. -Will obtain records from previous cardiology. -Will follow in outpatient setting. Qualifiers: Coronary Disease-Associated Artery/Lesion type: [place] artery [place] vs. transplanted heart: [place] heart Associated angina: without angina Qualified Code(s): I25.10 - Atherosclerotic heart disease of [place] coronary artery without angina pectoris (5) CKD (chronic kidney disease) stage 4, GFR 15-29 ml/min Current Visit: Yes Status: Chronic Per cardiology: -Patient reports known CKD. -Creatinine on admission 2.09. -Creatinine today 1.49. -Management per primary service. Discussion w patient/family: The assessment and plan as outlined above was discussed with the patient who expressed understanding and agreement. All questions were answered. Thank you for involving us in the care of your patient. Please call with any questions. Discussed and reviewed with . Subjective Principal diagnosis: nausea/vomiting Interval history: Patient reports has had a couple episode of feeling her heart racing overnight. Patient denies chest pain. Objective Vital Signs, Last 4 Hours Temp Pulse Resp BP Pulse Ox 07/24/17 11:59 98.5 F 62 16 138/80 93 07/24/17 09:47 100 General: Conversant, No Apparent Distress HEENT: Atraumatic, Normocephaly, Mucus Membranes Moist Neck: No JVD, Normal carotid pulses Cardiac: Reg Rate and Rhythm, Normal S1 and S2, No Murmur Lungs: Normal Breath Sounds, No Wheeze, Rales, Rhonchi Neuro: Alert and responsive, No focal deficits noted Abdomen: Soft, Non-Tender Skin: No rashes noted on visualized skin Musculoskeletal: No Chest Wall Tenderness Extremities: No Clubbing, No Cyanosis, No Edema, Normal Pulses Results 07/24/17 04:11 07/24/17 04:11 Lab Results Active Medications Amiodarone HCl (Cordarone) 100 mg PO BID [facility] Stop: 01/21/18 21:01 Last Admin: 07/24/17 09:30 Dose: 100 mg Aspirin (Aspirin Ec) 81 mg PO DAILY [facility] Stop: 01/22/18 09:01 Last Admin: 07/24/17 09:30 Dose: 81 mg Atorvastatin Calcium (Lipitor) 20 mg PO DAILY [facility] Stop: 01/22/18 09:01 Last Admin: 07/24/17 09:30 Dose: 20 mg Heparin Sodium (Porcine) (Heparin) 5,000 unit SQ Q8HCO [facility] Stop: 01/22/18 22:01 Last Admin: 07/24/17 06:28 Dose: Not Given Isosorbide Mononitrate (Imdur) 30 mg PO DAILY [facility] Stop: 01/22/18 09:01 Last Admin: 07/24/17 09:30 Dose: 30 mg Levothyroxine Sodium (Synthroid) 75 mcg PO 0630 [facility] Stop: 01/22/18 06:31 Last Admin: 07/24/17 06:31 Dose: 75 mcg Loratadine (Claritin) 10 mg PO DAILY [facility] PRN Reason: Protocol Stop: 01/22/18 09:01 Last Admin: 07/24/17 09:30 Dose: 10 mg Metoprolol Tartrate (Lopressor) 25 mg PO Q8HR [facility] Stop: 01/22/18 16:01 Last Admin: 07/24/17 09:29 Dose: 25 mg Naloxone HCl (Narcan) 0.4 mg IVP Q2MIN PRN PRN Reason: Opioid Reversal Stop: 01/21/18 21:40 Ondansetron HCl (Zofran) 4 mg IVP Q8HR PRN PRN Reason: Nausea And Vomiting Stop: 01/21/18 17:51 Last Admin: 07/24/17 01:08 Dose: 4 mg Oxycodone HCl (Oxycontin) 20 mg PO Q12HR [facility] Stop: 01/22/18 18:01 Last Admin: 07/24/17 06:31 Dose: 20 mg Pantoprazole Sodium (Protonix) 40 mg IVP BIDAC [facility] Stop: 01/21/18 21:48 Last Admin: 07/24/17 09:29 Dose: 40 mg Pharmacy Profile Note (Patient Taking Own Medication) 1 each PO BID [facility] Stop: 01/22/18 09:01 Last Admin: 07/24/17 09:30 Dose: 1 each Ranolazine (Ranexa) 500 mg PO BID [facility] Stop: 01/21/18 21:01 Last Admin: 07/24/17 09:30 Dose: 500 mg Laboratory Tests 07/22/17 07/22/17 07/22/17 11:18 11:18 21:47 Hgb 11.0 L Potassium Creatinine 2.09 H 1.88 H 07/23/17 07/23/17 07/24/17 03:42 03:42 04:11 Hgb 9.4 L D 8.9 L Potassium Creatinine 1.66 H 07/24/17 04:11 Hgb Potassium 4.9 H Creatinine 1.49 H - Imaging and Cardiology Chest Xray: report reviewed Stress Test: report reviewed Echo: report reviewed - EKG Interpretation EKG results cardiology: other (Telemetry reviewed with average HR previous 12 hours noted to be 92, mostly sinus rhythm. PVCs and PACs noted. Patient had 3 episodes of atrial tachycardia noted.) Consult Discharge Plan - Plan Referrals: Alexandra Lugo CNP [Advanced Practice Nurse] - 08/07/17 10:30 am Nick Unger DO [Non-Partnered Physician] - 10/07/17 9:30 am
[2017-07-24] MEDS ORDERED: Acetaminophen 325 MG TABLET PO PRN (15:48)
--- NOTE | 2017-07-24 17:51 | Event Note ---
Date of Encounter: 07/24/17 Time of Encounter: 17:49 Chart reviewed. Troponin Hgb noted. No active bleeding; suspect dilutional value with IV fluids. Resume home Pradaxa, monitor H&H. Transfuse for Hgb less than 8. EGD without evidence of bleeding, Occult stool pending. Discussed case with pain management, they do not see patient in hospital setting to establish care for outpatient follow-up. Will resume patient's home medication at every 8 hours. Patient will need to follow-up with PCP to obtain referral to pain management. Discussed case with cardiology who noted patient and atrial tach with exertion does not life-threatening. Continue with increased BB dose. Monitor BP and heart rate.
[2017-07-24] MEDS: *HR* Dabigatran 75 MG CAPSULE PO SCH (20:10)
[2017-07-25] MEDS: *HR* OxyCODONE ER (12 HR) 20 MG TABLET PO SCH ×4 (00:23→23:55)
[2017-07-25 03:29] LABS: Basophils % 0.9 %; Eosinophils # 0.1 K/mcL (0.0-0.6); Eosinophils % 4.1 %; Hematocrit 31.3 % (35.3-44.9); Hemoglobin 9.4 g/dL (11.5-15.4); Immature Granulocytes % 0.3 % (0-4); Lymphocytes # 0.9 K/mcL (0.6-4.6); Mean Corpuscular Hemoglobin 24.5 pg (28.0-33.3); Mean Corpuscular Volume 81.5 fL (83.0-100.0); Mean Platelet Volume 12.1 fL (9.4-12.4); Monocytes # 0.4 K/mcL (0.0-1.3); Monocytes % 11.7 %; Platelet Count 149 K/mcL (140-400); Red Blood Count 3.84 M/mcL (3.82-4.97); Red Cell Distribution Width 18.7 % (11.5-14.5)
[2017-07-25 03:42] LABS: Albumin 2.7 g/dL (3.5-5.0); Albumin/Globulin Ratio 0.9 (1.1-2.2); Bilirubin,Total 0.5 mg/dL (0.2-1.2); Calcium 8.7 mg/dL (8.6-10.8); Globulin 3.1 g/dL (2.4-3.5); Total Protein 5.8 g/dL (6.0-8.3)
[2017-07-25] MEDS: Pantoprazole 40 MG VIAL IVP SCH ×2 (05:56→16:40)
[2017-07-25] MEDS ORDERED: 0.9 % Sodium Chloride 500 ML IVC ONE (08:51)
[2017-07-25] MEDS: Loratadine 10 MG TABLET PO SCH (09:28)
[2017-07-25] MEDS: Aspirin Enteric Coated 81 MG Tablet PO SCH (09:28)
[2017-07-25] MEDS: *HR* Dabigatran 75 MG CAPSULE PO SCH ×2 (09:29→21:19)
[2017-07-25] MEDS: *HR* Amiodarone 200 MG TABLET PO SCH ×2 (09:29→21:19)
[2017-07-25] MEDS: Ranolazine 500 MG TAB.ER.12H PO SCH ×2 (09:30→21:19)
[2017-07-25] MEDS: Isosorbide MONOnitrate (24 HR) 30 MG TAB.ER.24H PO SCH (09:30)
[2017-07-25] MEDS: MESALAMINE 400 MG PO SCH ×2 (09:34→21:19)
--- NOTE | 2017-07-25 12:05 | Discharge Summary ---
Date of Encounter: 07/25/17 Time of Encounter: 11:44 - Discharge Diagnosis (1) Abdominal pain Priority: Primary Status: Acute Comments: Sigrid Wagner is a 89 y/o female with PMH atrial fibrillation, CKD, hypothyroidism and hypertension who presented to [facility] on 07/22/2017 with complaints of nausea, vomiting and abdominal pain. She was placed in observation status for further workup and treatment. 1. Abdominal pain: Presented with abdominal pain with associated nausea vomiting for 4 days prior to presentation. Had recent admission to outside hospital for approx 9 days with similar sx's and no apparent cause found. ABD CT unremarkable. 07/23/2017 EGD with diffuse gastric atrophy, otherwise non- acute. Reported intermittent loose stool but unable to obtain stool specimen for C. difficile, stool panel. Etiology unknown, symptoms appeared to wax and wane; possibly gastroenteritis or IBS (patient reported long history of intermittent abdominal pain with associated loose stool; records obtained from [facility] from 08/2016 and patient was hospitalized with similar symptoms at that time). Symptoms improved at time of discharge, no abdominal pain and tolerating regular diet. Continue PPI, home mesalaine. Add PRN Zofran per daughter request. Will need to follow-up with GI for biopsy results. 2. Atrial fibrillation: per hx. HRs in 150s-160s with exertion. Evaluated by Cardiology who suspected breakthrough episodes are actually atrial tachycardia. Intermittently short of breath with tachycardia. Home BP increased to 3 times a day per cardiology recommendations. Still with intermittent tachycardia with exertion but improved at time of discharge. Will need to follow-up with cardiology outpatient. Cont BB at increased dose, amiodarone, pradaxa 3. Esophageal stricture: per hx with dilations in the past. His untended with difficulty tolerating PO. EGD without evidence of stricture. Tolerating PO without difficulty at time of discharge. 4. CAD: with hx CABG. Denied chest pain. Cont home ASA, nitrate, BB, ranexa 5. CKD: per hx. Cr 2.9 at OSH, improved to 1.6 which is consistent with creatinine in 2016. Avoid nephrotoxic agents as possible. Lake catheter placed and nephrology consult and with worsening renal function and hyperkalemia. 6. Chronic pain: per hx. On Oxycontin every 8 hours at home ([facility] verified and she does have active rx for TID Oxycontin). Continue home pain regimen at discharge. Recommend follow-up with PCP for possible referral to pain management. 7. Loose stool: in the setting of senna and lactulose. Lactulose and senna held at discharge. Defer to patient/daughter and PCP on when to resume. 8. Anemia: Hgb 11 at outside hospital and dropped to 9.4. Baseline unknown. Occult stool ordered but not obtained. No active bleeding. Hemodynamically stable. Iron studies pending at time of discharge. Recommend follow-up with PCP within 1-2 weeks. 9. Hyperkalemia: In the setting of worsening renal function. Received bolus with slight improvement and creatinine however potassium worsen. Treat with IV insulin, dextrose. Monitor repeat potassium level. We will change status to inpatient as patient cannot be safely discharged with worsening hyperkalemia; could be potentially fatal if she is discharged home and electrolytes not closely monitored Disposition: Was going to be discharged 07/25/2017 however she developed worsening renal function and hyperkalemia. Discharge canceled and nephrology consult. Qualifiers: Abdominal location: lower abdomen, unspecified Qualified Code(s): R10.30 - Lower abdominal pain, unspecified (2) Esophageal stricture Priority: Primary Status: Acute (3) Atrial fibrillation Priority: Primary Status: Chronic Qualifiers: Atrial fibrillation type: paroxysmal Qualified Code(s): I48.0 - Paroxysmal atrial fibrillation (4) CAD (coronary artery disease) Priority: Primary Status: Chronic Qualifiers: Coronary Disease-Associated Artery/Lesion type: [place] artery [place] vs. transplanted heart: [place] heart Associated angina: without angina Qualified Code(s): I25.10 - Atherosclerotic heart disease of [place] coronary artery without angina pectoris - Discharge Medications Prescriptions: Ondansetron ODT [Zofran ODT] 4 mg SL Q4HR PRN #120 tab.rapdis PRN Reason: Nausea And Vomiting Metoprolol [Lopressor] 25 mg PO Q8HR #90 tablet Pantoprazole Sodium [Protonix] 40 mg PO DAILY #30 tablet.dr Home Medications: Amiodarone HCl [Pacerone] 100 mg PO BID 07/22/17 [History] Aspirin [Lo-Dose Aspirin EC] 81 mg PO DAILY 07/22/17 [History] Dabigatran [Pradaxa] 75 mg PO BID 07/22/17 [History] Furosemide [Lasix] 20 mg PO DAILY 07/22/17 [History] Isosorbide MONOnitrate (24 HR) [Imdur] 30 mg PO DAILY 07/22/17 [History] Levothyroxine [Synthroid] 75 mcg PO QAM 07/22/17 [History] Loratadine [Claritin] 10 mg PO DAILY 07/22/17 [History] Mesalamine [Delzicol] 400 mg PO BID 07/22/17 [History] Metoprolol Tartrate [Lopressor] 25 mg PO BID 07/22/17 [History] Naloxegol Oxalate [Movantik] 12.5 mg PO DAILY 07/22/17 [History] OxyCODONE ER (12 HR) [OxyCONTIN] 20 mg PO Q8HR 07/22/17 [History] Pravastatin Sodium [Pravachol] 80 mg PO DAILY 07/22/17 [History] Ranolazine [Ranexa] 500 mg PO BID 07/22/17 [History] Sennosides/Docusate Sodium [Stool Softener Tablet] 1 each PO BID 07/22/17 [ History] Metoprolol [Lopressor] 25 mg PO Q8HR #90 tablet 07/25/17 [Rx] Ondansetron ODT [Zofran ODT] 4 mg SL Q4HR PRN #120 tab.rapdis 07/25/17 [Rx] Pantoprazole Sodium [Protonix] 40 mg PO DAILY #30 tablet. 07/25/17 [Rx] Allergies/Adverse Reactions: 3 Allergy/AdvReac Type Severity Reaction Status Date / Time lorazepam [From Ativan] Allergy Hallucinati Verified 07/22/17 10:57 ng promethazine [From Phenergan] Allergy See Verified 07/22/17 10:56 Comments acetaminophen AdvReac See Verified 07/22/17 10:57 [From Darvocet-N] Comments propoxyphene AdvReac See Verified 07/22/17 10:57 [From Darvocet-N] Comments Procedures/tests Complete & Pending: Procedures Performed prior 72 hours Category Date Time Status ECG 12 lead ECG [ECG] Routine Y 07/22/17 16:20 Completed Date of admission: 07/22/17 15:50 Primary care physician: PCP NONE Consults: 07/22/17 19:48 Consult to Gastroenterology [CONS] Routine Consulting Provider: Gastroenterology Regina Reason for Consult: Patient has intractable N/V for the past 3 days and hx of esophageal stricture. Patient also reports severe lower abdominal pain for the past 3 days but states her stomach has been painful for two months. Hx of chronic constipation d/t opioid use. Call Completed: No 07/22/17 21:43 Consult to Space Operations Officer [CONS] Routine Reason for SW Consult: Assess patient for home needs for post-discharge planning. 07/22/17 21:44 Consult to Physical Therapy [CONS] Routine Comment: Evaluate, develop and implement POC Reason for Consult: Patient presents with generalized weakness. Please assess for strength, stability, ambulation, and assistive needs for post-discharge planning. 07/22/17 21:45 Consult to Occupational Therapy [CONS] Routine Comment: Evaluate, develop and implement POC Reason for Consult: Patient presents with generalized weakness. Please assess for strength, stability, ambulation, and assistive needs for post-discharge planning. 07/22/17 22:29 Consult to Nutrition [CONS] Routine Comment: Consulting Provider: NUTRITION Reason for Dietary Consult: PO Supplementation 07/23/17 09:55 Consult to Cardiology [CONS] Routine Comment: Consulting Provider: Cardiology Regina Reason for Consult: hx a-fib, now with breakthru RVR with exertion Call Completed: Yes Discharging clinician: Orly Lujan Anticipated date of discharge: 07/25/17 - Patient Status Disposition: Home Health Service Condition: Fair Functional capacity at discharge: uses cane/walker Overall status at discharge: patient is progressing back to baseline - Discharge Instructions Instructions: Atrial Fibrillation (DC), Chronic Dysphagia (DC) Follow Up With: Alexandra Lugo CNP [Advanced Practice Nurse] - 08/07/17 10:30 am Nick Unger DO [Non-Partnered Physician] - 10/07/17 9:30 am - Diet and Activity Activity: ambulate only with your walker, increase activity as tolerated Diet: advance to your usual diet Interval History: Seen and examined at bedside. Patient says she feels much better. Denies abdominal pain. Has not had anymore loose stool. She is tolerating regular diet area says she wants to go home today. Daughter at bedside and updated. Daughter feels patient is progressing back to baseline. Daughter wants discharged home today as long as patient can be transported in [place]. Patient reports some shortness of breath and palpitations with exertion but overall improved. Hospital course: See assessment and plan for hospital course - Time Spent with Patient Total time spent providing and/or coordinating discharge services: Less than 30 minutes - Constitutional Vitals: Temp Pulse Resp BP Pulse Ox 97.5 F L 73 16 111/73 99 07/25/17 07:00 07/25/17 07:00 07/25/17 07:00 07/25/17 07:00 07/25/17 09:00 General appearance: Present: cachectic, cooperative, A&O X 3, pleasant, answers questions appropriately - Head Head exam: Present: atraumatic, normocephalic - Eye Eye exam: Present: PERRL, conjuntiva pink, sclera anicteric Pupils: Present: PERRL - Neck Neck exam general surgery: Present: supple, trachea midline. Absent: lymphadenopathy - Respiratory Respiratory exam: Present: CTAB. Absent: accessory muscle use, rales, rhonchi, wheezes - Cardiovascular Cardiovascular exam: Present: irregular rhythm Additional comments: + murmur - GI/Abdominal GI/Abdominal exam: Present: normal bowel sounds, soft, no peritoneal signs. Absent: distended, tenderness - Extremities Exam Extremities exam: Present: warm, radial pulses palpable and symmetrical. Absent : calf tenderness, cyanotic, pedal edema - Neurological Exam Neurological exam: Present: CN II-XII intact, oriented X3, no focal deficits. Absent: pronater drift, facial droop, speech deficit - Skin Skin exam: Present: dry, intact
[2017-07-25 12:21] LABS: % Iron Saturation 6 % (15-50); Iron 20 mcg/dL (50-170); Transferrin 258 mg/dL (180-382)
[2017-07-25 15:29] LABS: Albumin 2.5 g/dL (3.5-5.0); Albumin/Globulin Ratio 0.8 (1.1-2.2); Bilirubin,Total 0.4 mg/dL (0.2-1.2); Calcium 8.5 mg/dL (8.6-10.8); Globulin 3.2 g/dL (2.4-3.5); Potassium 5.5 mEq/L (3.5-4.5); Total Protein 5.7 g/dL (6.0-8.3)
[2017-07-25] MEDS ORDERED: *HR* Dextrose 50 % in Water (Syg) 50 ML SYRINGE IVP ONE (15:50)
[2017-07-25] MEDS ORDERED: Insulin Human Regular 10 UNIT in 0.9 % Sodium Chloride 10 ML IV ONE (15:50)
[2017-07-25] MEDS ORDERED: 0.9 % Sodium Chloride 1,000 ML IVC ONE (16:51)
[2017-07-25] MEDS: 0.9 % Sodium Chloride 1,000 ML IVC SCH (19:58)
[2017-07-26] MEDS: Nystatin Cream 15 GM TUBE TP SCH ×3 (00:22→21:05)
[2017-07-26 05:42] LABS: Basophils % 0.4 %; Eosinophils # 0.2 K/mcL (0.0-0.6); Eosinophils % 3.2 %; Hematocrit 31.1 % (35.3-44.9); Hemoglobin 9.2 g/dL (11.5-15.4); Immature Granulocytes % 0.4 % (0-4); Lymphocytes # 0.7 K/mcL (0.6-4.6); Lymphocytes % 14.6 %; Mean Corpuscular HGB Conc 29.6 g/dL (31.6-35.5); Mean Corpuscular Hemoglobin 24.5 pg (28.0-33.3); Mean Corpuscular Volume 82.9 fL (83.0-100.0); Mean Platelet Volume 12.6 fL (9.4-12.4); Monocytes # 0.4 K/mcL (0.0-1.3); Monocytes % 8.2 %; Neutrophils # 3.7 K/mcL (1.6-8.9); Platelet Count 148 K/mcL (140-400); Red Blood Count 3.75 M/mcL (3.82-4.97); Red Cell Distribution Width 19.7 % (11.5-14.5); Segmented Neutrophils % 73.2 %
[2017-07-26 05:53] LABS: Albumin 2.6 g/dL (3.5-5.0); Albumin/Globulin Ratio 0.8 (1.1-2.2); Bilirubin,Total 0.4 mg/dL (0.2-1.2); Calcium 8.5 mg/dL (8.6-10.8); Globulin 3.1 g/dL (2.4-3.5); Potassium 5.5 mEq/L (3.5-4.5); Total Protein 5.7 g/dL (6.0-8.3)
[2017-07-26] MEDS: Pantoprazole 40 MG VIAL IVP SCH (06:22)
--- NOTE | 2017-07-26 07:51 | Nephrology Consult Note ---
Date of Encounter: 07/26/17 Time of Encounter: 07:49 Assessment and Plan (1) CKD (chronic kidney disease) stage 4, GFR 15-29 ml/min Current Visit: Yes Status: Chronic The patient is a clinical picture of late [address] early stage IV chronic kidney disease. Most likely etiology is hypertensive nephrosclerosis. She does not report a history of diabetes. This is called today by mild hyperkalemia. I suspect that this is related to decreased oral intake resulting in decreased tubular delivery to the distal nephron resulting in decreased potassium excretion. Hopefully with the placement of a Lake catheter as well as IV fluids her renal function will stabilize and we will see some improvement in her potassium excretion. In the meantime may be worthwhile to place her on a potassium restricted diet. We will proceed with an evaluation for her chronic kidney disease. (2) Hyperkalemia, diminished renal excretion Current Visit: Yes Status: Acute History of Present Illness - History of Present Illness This is an 89-year-old female who was admitted for abdominal pain. Patient Has a history of underlying chronic kidney disease. She had seen nephrology when she was living in [place]. Recently her daughter had her moved up to this area. Patient presented to the hospital with a several month history of abdominal pain with associated nausea and vomiting. She does have a history of gastroesophageal reflux as well as a hiatal hernia and esophageal stricture in the past. Most of the history is obtained from the patient's daughter. The patient has a history of chronic kidney disease. Exact baseline is unclear. During the hospital her creatinine has been running around 1.53 with a GFR of 32. She has had some mild hyperkalemia with potassium ranging from 4.95.5. She has not been on an GIO inhibitor or angiotensin jesus. She has not been on a potassium sparing diuretic. Her main symptom appears to be decreased urine output, urinary dribbling, and bladder incontinence. She had a Lake catheter placed yesterday and apparently has some discomfort when it was placed. The patient's daughter reports her previous ultrasound showed some type of "cyst" in the bladder. Has of the patient's abdominal pain and GI symptoms she has had poor oral intake for at least the past several days if not longer. She has not been using nonsteroidal anti-inflammatory agents at home. She does have a history of chronic arthritic pain. Past Med Surg Social Fam HX - Past Medical History Medical history: arthritis, atrial fibrillation, coronary artery disease, GERD, hyperlipidemia, hypertension, myocardial infarction, thyroid disease Psychiatric history: no psych history - Past Surgical History Surgical History: coronary bypass (CABG) (1985 and 2000) - Social History Smoking Status: Never smoker Alcohol use: none Drug use: none - Family History Father Race: Family Member Ethnicity: Non- Living Status: Age at : 74 Cause of : ME Hx Family Cardiac Disorders: Yes (ME, CAD, HTN) Hx Family GI Disorders: Yes (IBS) Mother Race: Family Member Ethnicity: Non- Living Status: Age at : 79 Cause of : [place] Hx Family Cardiac Disorders: Yes (ME) Brother Race: Family Member Ethnicity: Non- Living Status: Age at : 91 Cause of : ME Hx Family Cardiac Disorders: Yes (ME) Sister Race: Family Member Ethnicity: Non- Living Status: Age at : 87 Cause of : ME Hx Family Cardiac Disorders: Yes (ME) Medications and Allergies Amiodarone HCl [Pacerone] 100 mg PO BID 07/22/17 [History] Aspirin [Lo-Dose Aspirin EC] 81 mg PO DAILY 07/22/17 [History] Dabigatran [Pradaxa] 75 mg PO BID 07/22/17 [History] Furosemide [Lasix] 20 mg PO DAILY 07/22/17 [History] Isosorbide MONOnitrate (24 HR) [Imdur] 30 mg PO DAILY 07/22/17 [History] Levothyroxine [Synthroid] 75 mcg PO QAM 07/22/17 [History] Loratadine [Claritin] 10 mg PO DAILY 07/22/17 [History] Mesalamine [Delzicol] 400 mg PO BID 07/22/17 [History] Metoprolol Tartrate [Lopressor] 25 mg PO BID 07/22/17 [History] Naloxegol Oxalate [Movantik] 12.5 mg PO DAILY 07/22/17 [History] OxyCODONE ER (12 HR) [OxyCONTIN] 20 mg PO Q8HR 07/22/17 [History] Pravastatin Sodium [Pravachol] 80 mg PO DAILY 07/22/17 [History] Ranolazine [Ranexa] 500 mg PO BID 07/22/17 [History] Sennosides/Docusate Sodium [Stool Softener Tablet] 1 each PO BID 07/22/17 [ History] Metoprolol [Lopressor] 25 mg PO Q8HR #90 tablet 07/25/17 [Rx] Ondansetron ODT [Zofran ODT] 4 mg SL Q4HR PRN #120 tab.rapdis 07/25/17 [Rx] Pantoprazole Sodium [Protonix] 40 mg PO DAILY #30 tablet. 07/25/17 [Rx] 3 Allergy/AdvReac Type Severity Reaction Status Date / Time lorazepam [From Ativan] Allergy Hallucinati Verified 07/22/17 10:57 ng promethazine [From Phenergan] Allergy See Verified 07/22/17 10:56 Comments acetaminophen AdvReac See Verified 07/22/17 10:57 [From Darvocet-N] Comments propoxyphene AdvReac See Verified 07/22/17 10:57 [From Darvocet-N] Comments Review of Systems Constitutional: weakness Eyes: bilateral: blurred vision (patient denies), diplopia (patient denies) Nose, mouth and throat: no dizziness, no headache(s) Cardiovascular: dyspnea on exertion, no chest pain, no palpitations Respiratory: dyspnea on exertion Gastrointestinal: as per HPI, abdominal pain, nausea, vomiting Genitourinary Female: as per HPI, difficulty urinating, pelvic pain, post void dribbling Musculoskeletal: as per HPI, arthralgias, back pain Integumentary: no hirsutism, no striae Neurological: as per HPI Psychiatric: no depression, no difficulty concentrating Endocrine: as per HPI Exam - Vital Signs Vital signs: Initial Vital Signs Temp Pulse Resp BP Pulse Ox 98.1 F 85 15 146/89 98 07/22/17 16:16 07/22/17 16:16 07/22/17 16:16 07/22/17 16:16 07/22/17 16:16 Vital Signs - Last 8 Hours Temp Pulse Resp BP Pulse Ox 07/26/17 03:03 99.0 F 78 14 150/83 96 Intake and Output 07/25/17 07/25/17 07/26/17 15:59 23:59 07:59 Intake Total 240 / 240 Output Total 200 / 200 Balance 240 / 240 -200 / -200 Intake: Oral 240 / 240 Output: Catheter 200 / 200 Other: Meal Breakfast Percent of Meal Consumed 100% Weight 73.4 kg Blood Glucose* 103 Patient Weight 07/26/17 23:59 Weight 73.4 kg - General Appearance Exam: Patient is alert and oriented. She is in no acute distress. Vital signs are stable. Lake catheter is in place. She is on the maintenance IV at 75 mL per hour. Lungs clear to auscultation. Heart irregular rate and rhythm. Abdomen shows normal bowel sounds. Abdomen is soft. There is no guarding or rigidity. There is no peripheral edema. Results - Lab Results 07/26/17 03:57 07/26/17 03:57 Most recent lab results Calcium 8.5 mg/dL (8.6-10.8) L 07/26/17 03:57 Magnesium 1.9 mg/dL (1.6-2.6) 07/23/17 03:42 Consult Discharge Plan - Plan Instructions: Atrial Fibrillation (DC), Chronic Dysphagia (DC) Referrals: Alexandra Lugo CNP [Advanced Practice Nurse] - 08/07/17 10:30 am Nick Unger DO [Non-Partnered Physician] - 10/07/17 9:30 am Prescriptions: Ondansetron ODT [Zofran ODT] 4 mg SL Q4HR PRN #120 tab.rapdis PRN Reason: Nausea And Vomiting Metoprolol [Lopressor] 25 mg PO Q8HR #90 tablet Pantoprazole Sodium [Protonix] 40 mg PO DAILY #30 tablet.
[2017-07-26] MEDS ORDERED: Ipratropium/Albuterol Neb 3 ML IH PRN (08:33)
[2017-07-26] MEDS: 0.9 % Sodium Chloride 1,000 ML IVC SCH (08:35)
--- NOTE | 2017-07-26 08:36 | Internal Med Progress Note ---
Date of Encounter: 07/26/17 Time of Encounter: 08:34 - Assessment and plan (1) CKD (chronic kidney disease) stage 4, GFR 15-29 ml/min Current Visit: Yes Status: Chronic Assessment and plan: Patient has history of chronic kidney disease stage IV. Serum creatinine since admission is fairly stable, 1.53 today. She does have persistent hyperkalemia, will give a dose of oral Kayexalate today. Start renal/low potassium diet. Nephrology consult appreciated, follow-up renal ultrasound. Patient was noted to have urinary retention, currently noted to have appropriate urine output with Lake catheterization. We will hold IV fluids now as she is noted to have mild wheezing. (2) Nausea & vomiting Current Visit: Yes Status: Resolved Assessment and plan: Admitted with nausea, vomiting and acute on chronic abdominal pain. She has history of esophageal strictures and underwent dilation twice in the past. Gastroenterology was consulted during this admission and patient underwent EGD, which showed a small hiatal hernia and diffuse atrophic gastric mucosa, no evidence of strictures. Continue when necessary antiemetics, diet as tolerated. Supportive care. Qualifiers: Vomiting type: unspecified Vomiting Intractability: non-intractable Qualified Code(s): R11.2 - Nausea with vomiting, unspecified (3) Hyperkalemia, diminished renal excretion Current Visit: Yes Status: Acute Assessment and plan: Give 15 g Kayexalate, monitor serum creatinine closely. Low potassium diet. Telemetry monitoring. (4) GERD (gastroesophageal reflux disease) Current Visit: Yes Status: Chronic Qualifiers: Esophagitis presence: esophagitis presence not specified Qualified Code(s) : K21.9 - Gastro-esophageal reflux disease without esophagitis (5) CAD (coronary artery disease) Current Visit: Yes Status: Chronic Assessment and plan: Continue aspirin, statin, beta jesus. Telemetry monitoring. Qualifiers: Coronary Disease-Associated Artery/Lesion type: [place] artery [place] vs. transplanted heart: [place] heart Associated angina: without angina Qualified Code(s): I25.10 - Atherosclerotic heart disease of [place] coronary artery without angina pectoris (6) Thyroid disease Current Visit: Yes Status: Chronic (7) Atrial fibrillation Current Visit: Yes Status: Chronic Assessment and plan: Currently rate controlled. Patient has had intermittent tachycardia, cardiology has been on board and recommend to titrate beta jesus and patient' s most likely has atrial tachycardia, which is not life-threatening and patient remains asymptomatic. Continue Amiodarone. Continue anticoagulation with Pradaxa. Qualifiers: Atrial fibrillation type: paroxysmal Qualified Code(s): I48.0 - Paroxysmal atrial fibrillation - Subjective Interval history: Reports feeing ill due to multiple joint pains, which are chronic for her. No nausea, vomiting, able to swallow solids per daughter. No bowel movements since admission per daughter; she also had oliguria until yesterday, Lake was placed , currently draining well. - Constitutional Vitals: Temp Pulse Resp BP Pulse Ox 98.1 F 79 16 137/73 96 07/26/17 08:26 07/26/17 08:26 07/26/17 08:26 07/26/17 08:26 07/26/17 08:26 General appearance: Present: A&O X 3, answers questions appropriately - Respiratory Respiratory exam: Present: CTAB, wheezes (faint end expiratory wheezing B/L bases and anterior chest). Absent: accessory muscle use, rales, rhonchi - Cardiovascular Cardiovascular exam: Present: RRR, +S1, +S2. Absent: diastolic murmur, gallop, rubs, systolic murmur - GI/Abdominal GI/Abdominal exam: Present: normal bowel sounds, soft, no peritoneal signs. Absent: distended, tenderness - Extremities Exam Extremities exam: Present: full ROM, pedal edema (trace ankle edema B/L), warm, radial pulses palpable and symmetrical. Absent: calf tenderness, cyanotic - Neurological Exam Neurological exam: Present: CN II-XII intact, oriented X3, no focal deficits, strengths equal and symetr throughout (diffuse weakness B/L). Absent: pronater drift, facial droop, speech deficit Internal Medicine: Result - Labs CBC & Chem 7: 07/26/17 03:57 07/26/17 03:57 Labs: Short CBC 07/26/17 Range/Units 03:57 WBC 5.0 (4.3-11.1) K/mcL Hgb 9.2 L (11.5-15.4) g/dL Hct 31.1 L (35.3-44.9) % Plt Count 148 (140-400) K/mcL Neutrophils # 3.7 (1.6-8.9) K/mcL BMP 07/25/17 07/26/17 15:03 03:57 Sodium 137 138 Potassium 5.5 H 5.5 H Chloride 106 106 Carbon Dioxide 27 26 BUN 20 17 Creatinine 1.65 H 1.53 H Glucose 154 H 132 H Calcium 8.5 L 8.5 L Liver Function 07/25/17 07/26/17 Range/Units 15:03 03:57 Total Bilirubin 0.4 0.4 (0.2-1.2) mg/dL AST 20 22 (5-34) Units/L ALT 25 25 (0-55) Units/L Alkaline Phosphatase 84 88 (38-126) Units/L Albumin 2.5 L 2.6 L (3.5-5.0) g/dL - ABG Interpretation ABG results: PT/INR, D-dimer PT 14.4 Seconds (9.4-12.1) H 07/23/17 03:42 Consult Discharge Plan - Plan Instructions: Atrial Fibrillation (DC), Chronic Dysphagia (DC) Referrals: Alexandra Lugo CNP [Advanced Practice Nurse] - 08/07/17 10:30 am Nick Unger DO [Non-Partnered Physician] - 10/07/17 9:30 am
[2017-07-26] MEDS: Isosorbide MONOnitrate (24 HR) 30 MG TAB.ER.24H PO SCH (08:46)
[2017-07-26] MEDS: *HR* Amiodarone 200 MG TABLET PO SCH ×2 (08:46→21:05)
[2017-07-26] MEDS: *HR* Dabigatran 75 MG CAPSULE PO SCH ×2 (08:46→21:05)
[2017-07-26] MEDS: Loratadine 10 MG TABLET PO SCH (08:46)
[2017-07-26] MEDS: *HR* OxyCODONE ER (12 HR) 20 MG TABLET PO SCH ×3 (08:47→23:32)
[2017-07-26] MEDS: Aspirin Enteric Coated 81 MG Tablet PO SCH (08:47)
[2017-07-26] MEDS: Ranolazine 500 MG TAB.ER.12H PO SCH ×2 (08:47→21:05)
[2017-07-26] MEDS: MESALAMINE 400 MG PO SCH ×2 (09:04→21:05)
[2017-07-26] MEDS: Ondansetron ODT 4 MG TAB.RAPDIS SL PRN (23:58)
[2017-07-27 05:34] LABS: Albumin 2.5 g/dL (3.5-5.0); Albumin/Globulin Ratio 0.8 (1.1-2.2); Bilirubin,Total 0.5 mg/dL (0.2-1.2); Calcium 8.5 mg/dL (8.6-10.8); Globulin 3.2 g/dL (2.4-3.5); Phosphorous 2.5 mg/dL (2.3-4.7); Total Protein 5.7 g/dL (6.0-8.3)
[2017-07-27] MEDS: Loratadine 10 MG TABLET PO SCH (08:44)
[2017-07-27] MEDS: Aspirin Enteric Coated 81 MG Tablet PO SCH (08:44)
[2017-07-27] MEDS: *HR* Dabigatran 75 MG CAPSULE PO SCH ×2 (08:44→22:45)
[2017-07-27] MEDS: Isosorbide MONOnitrate (24 HR) 30 MG TAB.ER.24H PO SCH (08:45)
[2017-07-27] MEDS: *HR* OxyCODONE ER (12 HR) 20 MG TABLET PO SCH ×2 (08:45→17:40)
[2017-07-27] MEDS: Ranolazine 500 MG TAB.ER.12H PO SCH ×2 (08:46→22:45)
[2017-07-27] MEDS: *HR* Amiodarone 200 MG TABLET PO SCH ×2 (08:46→22:44)
[2017-07-27] MEDS: Nystatin Cream 15 GM TUBE TP SCH ×2 (08:54→22:45)
[2017-07-27] MEDS: MESALAMINE 400 MG PO SCH ×2 (09:20→22:45)
[2017-07-27] MEDS ORDERED: Ondansetron 4 MG/2 ML VIAL IM PRN (10:21)
[2017-07-27] MEDS: Ondansetron ODT 4 MG TAB.RAPDIS SL PRN (10:26)
--- NOTE | 2017-07-27 11:21 | Nephrology Progress Note ---
Date of Encounter: 07/27/17 Time of Encounter: 11:00 - Assessment and Plan (1) CKD (chronic kidney disease) stage 4, GFR 15-29 ml/min Current Visit: Yes Status: Chronic CKD 3-4 most likely in setting of hypertensive nephropathy. Creat 1.40, K 5.0. Renal US this afternoon. Will continue to monitor. Subjective Principal diagnosis: nausea/vomiting Interval history: Lying quietly, Daughter at bedside. Admits emesis very early this morning. Has since eaten breakfast and drank fluids and able to keep down. Documented urine output 200cc, though daughter states was leaking urine around nelson catheter and nelson subsequently remove. Patient voided 550 cc per daughter on BSC. Objective - Vital Signs Vital signs: Vital Signs Temp Pulse Resp BP Pulse Ox 07/27/17 11:00 98 F 77 16 132/75 95 07/27/17 07:53 98.3 F 77 16 111/65 95 07/27/17 02:56 98.0 F 82 16 125/70 98 07/27/17 00:50 98.1 F 97 16 121/71 96 07/26/17 19:16 97.7 F 79 16 128/71 94 07/26/17 15:56 98.1 F 79 16 122/71 96 Intake and Output 07/26/17 07/27/17 07/27/17 23:59 07:59 15:59 Output Total 200 / 200 Balance -200 / -200 Output: Urine 200 / 200 Other: Meal Breakfast Percent of Meal Consumed 85% Weight 79.923 kg Patient Weight 07/27/17 23:59 Weight 79.923 kg - General Appearance General appearance: Present: well-developed, well-nourished, appears started age EENT: Present: mucous membranes moist Neck: Present: no JVD Respiratory: Present: clear Cardiology: Present: no edema, regular rate, regular rhythm Gastrointestinal: Present: normoactive bowel sounds, tenderness Integumentary: Present: warm and dry Neurologic: Present: alert and oriented x3 Psychiatric: Present: mood/affect appropriate, cooperative - Lab 07/26/17 03:57 07/27/17 04:05 Most recent lab results Calcium 8.5 mg/dL (8.6-10.8) L 07/27/17 04:05 Phosphorus 2.5 mg/dL (2.3-4.7) 07/27/17 04:05 Magnesium 1.9 mg/dL (1.6-2.6) 07/23/17 03:42 Consult Discharge Plan - Plan Instructions: Atrial Fibrillation (DC), Chronic Dysphagia (DC) Referrals: Alexandra Lugo CNP [Advanced Practice Nurse] - 08/07/17 10:30 am Nick Unger DO [Non-Partnered Physician] - 10/07/17 9:30 am
--- NOTE | 2017-07-27 14:01 | Cardiology Progress Note ---
<Lara Santacruz - Last Filed: 07/27/17 13:58> Date of Encounter: 07/27/17 Time of Encounter: 13:30 Assessment and Plan (1) Nausea & vomiting Current Visit: Yes Status: Resolved Per cardiology: -Admitted with nausea and vomiting. -Reports poor oral intake at home. -History of esophageal stricture. -Management per primary and GI services. Qualifiers: Vomiting type: unspecified Vomiting Intractability: non-intractable Qualified Code(s): R11.2 - Nausea with vomiting, unspecified (2) Atrial tachycardia Current Visit: Yes Status: Acute Per cardiology: -Admitted for intractable nausea and vomiting. -Telemetry reviewed with episodes of tachycardia noted. -Tele strips reviewed with and Dr.John Grissom and noted to be atrial tachycardia. -Patient reports feels short of breath when tachycardic. -Lopressor was increased to TID. -On amiodarone 100mg BID. -BPs 90-130 systolic. Family reports unable to tolerate higher doses of beta jesus due to hypotension. -Average HR previous 12 hours noted to be 84, sinus rhythm. -Anticipate atrial tachycardia will lessen when she recovers from GI illness. -Discussed at length with patient and family who state understanding. -Cardiology will sign off and will follow in outpatient setting. Follow up set. (3) Atrial fibrillation Current Visit: Yes Status: Chronic Per cardiology: -Known PAF. -ON amiodarone and beta jesus. -ON pradaxa for anticoagulation, renally adjusted. Chads 2 vasc score 6 (age, gender, HTN, vascular disease, and CHF). -Average HR per telemetry noted to be 84, sinus rhythm. Intermittent atrial tachycardia noted. -Patient reports previously followed with cardiology in [place]. -Will continue to follow in outpatient setting. Qualifiers: Atrial fibrillation type: paroxysmal Qualified Code(s): I48.0 - Paroxysmal atrial fibrillation (4) CAD (coronary artery disease) Current Visit: Yes Status: Chronic Per cardiology: -Known CAD. Patient reports CABG and repeat CABG in [place]. -Denies chest pain. -On asa, statin, beta jesus, imdur, and ranexa. -Reports recent stress and echo. -Will obtain records from previous cardiology. -Will follow in outpatient setting. Qualifiers: Coronary Disease-Associated Artery/Lesion type: [place] artery [place] vs. transplanted heart: [place] heart Associated angina: without angina Qualified Code(s): I25.10 - Atherosclerotic heart disease of [place] coronary artery without angina pectoris (5) CKD (chronic kidney disease) stage 4, GFR 15-29 ml/min Current Visit: Yes Status: Chronic Per cardiology: -Patient reports known CKD. -Creatinine on admission 2.09. -Management per primary service. Discussion w patient/family: The assessment and plan as outlined above was discussed with the patient who expressed understanding and agreement. All questions were answered. Thank you for involving us in the care of your patient. Please call with any questions. Discussed and reviewed with . Subjective Principal diagnosis: nausea/vomiting Interval history: Patient states she feels much better today. Objective Vital Signs, Last 4 Hours Temp Pulse Resp BP Pulse Ox 07/27/17 11:48 97.7 F 72 16 109/63 97 07/27/17 11:00 98 F 77 16 132/75 95 General: Conversant, No Apparent Distress HEENT: Atraumatic, Normocephaly, Mucus Membranes Moist Neck: No JVD, Normal carotid pulses Cardiac: Reg Rate and Rhythm, Normal S1 and S2, No Murmur Lungs: Normal Breath Sounds, No Wheeze, Rales, Rhonchi Neuro: Alert and responsive, No focal deficits noted Abdomen: Soft, Non-Tender Skin: No rashes noted on visualized skin Musculoskeletal: No Chest Wall Tenderness Extremities: No Clubbing, No Cyanosis, No Edema, Normal Pulses Results 07/26/17 03:57 07/27/17 04:05 Lab Results Active Medications Acetaminophen (Tylenol) 650 mg PO Q6HR PRN PRN Reason: pain Stop: 01/23/18 15:49 Last Admin: 07/24/17 16:02 Dose: 650 mg Albuterol/Ipratropium (Duoneb) 3 ml IH [id number] PRN PRN Reason: Shortness Of Breath/Wheezing Stop: 01/25/18 08:34 Amiodarone HCl (Cordarone) 100 mg PO BID [facility] Stop: 01/21/18 21:01 Last Admin: 07/27/17 08:46 Dose: 100 mg Aspirin (Aspirin Ec) 81 mg PO DAILY [facility] Stop: 01/22/18 09:01 Last Admin: 07/27/17 08:44 Dose: 81 mg Atorvastatin Calcium (Lipitor) 20 mg PO DAILY [facility] Stop: 01/22/18 09:01 Last Admin: 07/27/17 08:44 Dose: 20 mg Dabigatran (Pradaxa) 75 mg PO BID [facility] Stop: 01/23/18 21:01 Last Admin: 07/27/17 08:44 Dose: 75 mg Isosorbide Mononitrate (Imdur) 30 mg PO DAILY [facility] Stop: 01/22/18 09:01 Last Admin: 07/27/17 08:45 Dose: 30 mg Levothyroxine Sodium (Synthroid) 75 mcg PO 0630 [facility] Stop: 01/22/18 06:31 Last Admin: 07/27/17 06:24 Dose: 75 mcg Loratadine (Claritin) 10 mg PO DAILY [facility] PRN Reason: Protocol Stop: 01/22/18 09:01 Last Admin: 07/27/17 08:44 Dose: 10 mg Metoprolol Tartrate (Lopressor) 25 mg PO Q8HR [facility] Stop: 01/22/18 16:01 Last Admin: 07/27/17 08:44 Dose: 25 mg Naloxone HCl (Narcan) 0.4 mg IVP Q2MIN PRN PRN Reason: Opioid Reversal Stop: 01/21/18 21:40 Nystatin (Mycostatin Cream) 1 appl TP BID [facility] Stop: 01/24/18 23:46 Last Admin: 07/27/17 08:54 Dose: 1 appl Omeprazole (Prilosec) 40 mg PO BIDAC [facility] PRN Reason: Protocol Stop: 01/25/18 08:01 Last Admin: 07/27/17 06:25 Dose: 40 mg Ondansetron HCl (Zofran Odt) 4 mg SL Q6HR PRN PRN Reason: Nausea And Vomiting Stop: 01/25/18 23:52 Last Admin: 07/27/17 10:26 Dose: 4 mg Ondansetron HCl (Zofran) 4 mg IM Q8HR PRN PRN Reason: Nausea And Vomiting Stop: 01/21/18 17:51 Oxycodone HCl (Oxycontin) 20 mg PO Q8HR [facility] Stop: 01/24/18 00:01 Last Admin: 07/27/17 08:45 Dose: 20 mg Pharmacy Profile Note (Patient Taking Own Medication) 1 each PO BID [facility] Stop: 01/22/18 09:01 Last Admin: 07/27/17 09:20 Dose: Not Given Ranolazine (Ranexa) 500 mg PO BID [facility] Stop: 01/21/18 21:01 Last Admin: 07/27/17 08:46 Dose: 500 mg Laboratory Tests 07/26/17 07/27/17 03:57 04:05 Hgb 9.2 L Potassium 5.0 H Creatinine 1.40 H - Imaging and Cardiology Chest Xray: report reviewed Stress Test: report reviewed Echo: report reviewed - EKG Interpretation EKG results cardiology: other (Telemetry reviewed with average HR 84, sinus rhythm. Periods of atrial tachycardia noted.) Consult Discharge Plan - Plan Instructions: Atrial Fibrillation (DC), Chronic Dysphagia (DC) Referrals: Alexandra Lugo CNP [Advanced Practice Nurse] - 08/07/17 10:30 am Nick Unger DO [Non-Partnered Physician] - 10/07/17 9:30 am <Diana Manzano - Last Filed: 07/27/17 16:19> Date of Encounter: 07/27/17 Assessment and Plan Discussion w patient/family: The assessment and plan as outlined above was discussed with the patient and/or family members who expressed understanding and agreement. All questions were answered. Thank you for involving us in the care of your patient. Please call with any questions. I have personally performed a face to face evaluation on this patient. I have reviewed and agree with the care plan. History and Exam by me shows: 89 YOF h/o Atrial fibrillation now dehydrated due to nausea, vomiting likely predisposing her to atrial tachycardia with minimal exertion, BB was increased to TID but likely can be dropped after PO hydration. On AC for stroke risk reduction and HR well controlled at this time. F/U with cardiology OP in 2-4 weeks. Patient also on amiodarone started at an outside hospital and I have discussed with her potential side effects and necessary testing. Euvolemic on exam and currently denies any chest pain, SOB, Orthopnea, PND or syncope. Objective Vital Signs, Last 4 Hours Temp Pulse Resp BP Pulse Ox 07/27/17 15:47 98.4 F 77 17 112/77 98 Results 07/26/17 03:57 07/27/17 04:05 Lab Results 07/27/17 04:05 Sodium 138 Potassium 5.0 H Chloride 104 Carbon Dioxide 27 BUN 14 Creatinine 1.40 H Glucose 125 H Calcium 8.5 L Total Bilirubin 0.5 AST 22 ALT 23 Alkaline Phosphatase 93
--- NOTE | 2017-07-27 15:46 | Internal Med Progress Note ---
Date of Encounter: 07/27/17 Time of Encounter: 12:00 - Assessment and plan (1) CKD (chronic kidney disease) stage 4, GFR 15-29 ml/min Current Visit: Yes Status: Chronic Assessment and plan: Patient has history of chronic kidney disease stage IV. Serum creatinine since admission is fairly stable and improving, 1.4 today. Improving hyperkalemia. Continue renal/low potassium diet. Nephrology f/up noted, f/up renal U/S, which shows no acute abnormality of kidneys/bladder. Urine output improving, discontinued Lake catheter now. (2) Nausea & vomiting Current Visit: Yes Status: Resolved Assessment and plan: Admitted with nausea, vomiting and acute on chronic abdominal pain. She has history of esophageal strictures and underwent dilation twice in the past. Gastroenterology was consulted during this admission and patient underwent EGD, which showed a small hiatal hernia and diffuse atrophic gastric mucosa, no evidence of strictures. Continue when necessary antiemetics, diet as tolerated. Supportive care. Qualifiers: Vomiting type: unspecified Vomiting Intractability: non-intractable Qualified Code(s): R11.2 - Nausea with vomiting, unspecified (3) Hyperkalemia, diminished renal excretion Current Visit: Yes Status: Acute Assessment and plan: Improved with improving renal function. Low potassium diet. Telemetry monitoring. (4) GERD (gastroesophageal reflux disease) Current Visit: Yes Status: Chronic Qualifiers: Esophagitis presence: esophagitis presence not specified Qualified Code(s) : K21.9 - Gastro-esophageal reflux disease without esophagitis (5) CAD (coronary artery disease) Current Visit: Yes Status: Chronic Assessment and plan: Continue aspirin, statin, beta jesus. Telemetry monitoring. Qualifiers: Coronary Disease-Associated Artery/Lesion type: [place] artery [place] vs. transplanted heart: [place] heart Associated angina: without angina Qualified Code(s): I25.10 - Atherosclerotic heart disease of [place] coronary artery without angina pectoris (6) Thyroid disease Current Visit: Yes Status: Chronic (7) Atrial fibrillation Current Visit: Yes Status: Chronic Assessment and plan: Currently rate controlled. Patient does have intermittent tachycardia, on getting out of bed and ambulating. Cardiology reconsulted and d/w patient and family- no further intervention as inpatient. Metoprolol has been increased to TID and higher doses cannot be tolerated due to hypotension, per family. Continue Amiodarone and information technology architect anticoagulation with Pradaxa. Qualifiers: Atrial fibrillation type: paroxysmal Qualified Code(s): I48.0 - Paroxysmal atrial fibrillation (8) Constipation Current Visit: Yes Status: Acute Assessment and plan: could be due to narcotics and delayed transit. Start Senna Plus and PRN Miralax ; will give tap water enema today. Qualifiers: Constipation type: drug induced constipation Qualified Code(s): K59.03 - Drug induced constipation - Subjective Interval history: Appears more oriented and cheerful today; reports she feels weak and her HR goes up when she gets out of bed and works with PT. Able to swallow solids and liquids. Reports constipation, no BM even with Kayexalate. Able to void. - Constitutional Vitals: Temp Pulse Resp BP Pulse Ox 97.7 F 72 16 109/63 97 07/27/17 11:48 07/27/17 11:48 07/27/17 11:48 07/27/17 11:48 07/27/17 11:48 General appearance: Present: A&O X 3, answers questions appropriately - Respiratory Respiratory exam: Present: CTAB. Absent: accessory muscle use, rales, rhonchi, wheezes - Cardiovascular Cardiovascular exam: Present: RRR, +S1, +S2. Absent: diastolic murmur, gallop, rubs, systolic murmur - GI/Abdominal GI/Abdominal exam: Present: normal bowel sounds, soft, no peritoneal signs. Absent: distended, tenderness - Extremities Exam Extremities exam: Present: full ROM, warm, radial pulses palpable and symmetrical. Absent: calf tenderness, cyanotic, pedal edema - Neurological Exam Neurological exam: Present: CN II-XII intact, oriented X3, no focal deficits. Absent: pronater drift, facial droop, speech deficit Internal Medicine: Result - Labs CBC & Chem 7: 07/26/17 03:57 07/27/17 04:05 Labs: BMP 07/27/17 04:05 Sodium 138 Potassium 5.0 H Chloride 104 Carbon Dioxide 27 BUN 14 Creatinine 1.40 H Glucose 125 H Calcium 8.5 L Liver Function 07/27/17 Range/Units 04:05 Total Bilirubin 0.5 (0.2-1.2) mg/dL AST 22 (5-34) Units/L ALT 23 (0-55) Units/L Alkaline Phosphatase 93 (38-126) Units/L Albumin 2.5 L (3.5-5.0) g/dL - ABG Interpretation ABG results: PT/INR, D-dimer PT 14.4 Seconds (9.4-12.1) H 07/23/17 03:42 - Impressions Impressions Retroperitoneum Ultrasound 07/27/17 14:00 IMPRESSION: Unremarkable ultrasound of the kidneys and urinary bladder. D/ / Adam Patterson MD / Adam Patterson MD Interpreting Provider: Adam Patterson MD Consult Discharge Plan - Plan Instructions: Atrial Fibrillation (DC), Chronic Dysphagia (DC) Referrals: Alexandra Lugo CNP [Advanced Practice Nurse] - 08/07/17 10:30 am Nick Unger DO [Non-Partnered Physician] - 10/07/17 9:30 am
[2017-07-27] MEDS: Sennosides/Docusate Sodium TABLET PO SCH (22:44)
[2017-07-28] MEDS: Ondansetron ODT 4 MG TAB.RAPDIS SL PRN (00:12)
[2017-07-28] MEDS: *HR* OxyCODONE ER (12 HR) 20 MG TABLET PO SCH ×4 (00:12→23:36)
[2017-07-28 04:17] LABS: Albumin 2.6 g/dL (3.5-5.0); Albumin/Globulin Ratio 0.8 (1.1-2.2); Bilirubin,Total 0.5 mg/dL (0.2-1.2); Calcium 8.8 mg/dL (8.6-10.8); Globulin 3.2 g/dL (2.4-3.5); Potassium 4.9 mEq/L (3.5-4.5); Total Protein 5.8 g/dL (6.0-8.3)
--- NOTE | 2017-07-28 08:26 | Nephrology Progress Note ---
Date of Encounter: 07/28/17 Time of Encounter: 08:24 - Assessment and Plan (1) CKD (chronic kidney disease) stage 4, GFR 15-29 ml/min Current Visit: Yes Status: Chronic Patient has stage III chronic kidney disease which appears to be relatively stable. The mild hyperkalemia has improved. We will continue to monitor her renal function as well as her urine output. No new specific recommendations at this time. (2) Hyperkalemia, diminished renal excretion Current Visit: Yes Status: Acute Subjective Principal diagnosis: nausea/vomiting Interval history: Apparently the patient has been having issues with constipation. She also is having a lot of pain from the [place] catheter so the catheter has been removed. From a renal perspective her creatinine is stable at 1.41 with a GFR of 35. Potassium is 4.9. Urine output is recorded as 575 mL. No intake as recorded. Blood pressure 144/79. Renal ultrasound shows a left renal cyst. PTH is 97. Phosphorus 2.5. Iron saturation is 6%. Objective - Vital Signs Vital signs: Vital Signs Temp Pulse Resp BP Pulse Ox 07/28/17 07:39 97.7 F 96 18 146/77 93 07/27/17 23:25 98.2 F 78 12 144/79 98 07/27/17 15:47 98.4 F 77 17 112/77 98 07/27/17 11:48 97.7 F 72 16 109/63 97 07/27/17 11:00 98 F 77 16 132/75 95 - General Appearance Exam: Patient is alert and oriented. She is in no acute distress. Lungs essentially clear to auscultation. Heart regular rhythm. Abdomen is soft. There is no peripheral edema. - Lab 07/26/17 03:57 07/28/17 03:40 Most recent lab results Calcium 8.8 mg/dL (8.6-10.8) 07/28/17 03:40 Phosphorus 2.5 mg/dL (2.3-4.7) 07/27/17 04:05 Magnesium 1.9 mg/dL (1.6-2.6) 07/23/17 03:42 Consult Discharge Plan - Plan Instructions: Atrial Fibrillation (DC), Chronic Dysphagia (DC) Referrals: Alexandra Lugo CNP [Advanced Practice Nurse] - 08/07/17 10:30 am Nick Unger, [Non-Partnered Physician] - 10/07/17 9:30 am
[2017-07-28] MEDS: *HR* Dabigatran 75 MG CAPSULE PO SCH ×2 (09:28→21:14)
[2017-07-28] MEDS: Sennosides/Docusate Sodium TABLET PO SCH ×2 (09:29→21:14)
[2017-07-28] MEDS: Ranolazine 500 MG TAB.ER.12H PO SCH ×2 (09:29→21:14)
[2017-07-28] MEDS: Aspirin Enteric Coated 81 MG Tablet PO SCH (09:29)
[2017-07-28] MEDS: MESALAMINE 400 MG PO SCH ×2 (09:29→21:15)
[2017-07-28] MEDS: Isosorbide MONOnitrate (24 HR) 30 MG TAB.ER.24H PO SCH (09:29)
[2017-07-28] MEDS: *HR* Amiodarone 200 MG TABLET PO SCH ×2 (09:29→21:14)
[2017-07-28] MEDS: Loratadine 10 MG TABLET PO SCH (09:29)
[2017-07-28] MEDS: Nystatin Cream 15 GM TUBE TP SCH ×2 (09:42→21:16)
--- NOTE | 2017-07-28 17:33 | Internal Med Progress Note ---
Date of Encounter: 07/28/17 Time of Encounter: 17:30 - Assessment and plan (1) Constipation Current Visit: Yes Status: Acute Assessment and plan: could be due to narcotics and delayed transit. Start Senna Plus and PRN Miralax ; will give tap water enema today. 07/28/2017 finally had BM today she is keen to get enema. Qualifiers: Constipation type: drug induced constipation Qualified Code(s): K59.03 - Drug induced constipation (2) CKD (chronic kidney disease) stage 4, GFR 15-29 ml/min Current Visit: Yes Status: Chronic Assessment and plan: Improving/Stable kidney function. nephrology on board and will follow recommendations. (3) Nausea & vomiting Current Visit: Yes Status: Resolved Assessment and plan: improved nausea and vomiting. no abdominal pain Qualifiers: Vomiting type: unspecified Vomiting Intractability: non-intractable Qualified Code(s): R11.2 - Nausea with vomiting, unspecified (4) Hyperkalemia, diminished renal excretion Current Visit: Yes Status: Acute Assessment and plan: Improved with improving renal function. Low potassium diet. Telemetry monitoring. 07/28/2017 K : 4.9 downward trend - Subjective Interval history: seen and examined chart reviewed patient is constipated and restless. daughter at bedside. - Constitutional Vitals: Temp Pulse Resp BP Pulse Ox 97.8 F 78 14 126/72 98 07/28/17 15:54 07/28/17 15:54 07/28/17 15:54 07/28/17 15:54 07/28/17 15:54 General appearance: Present: A&O X 3, answers questions appropriately - Head Head exam: Present: atraumatic, normocephalic - Eye Eye exam: Present: PERRL, conjuntiva pink, sclera anicteric Pupils: Present: PERRL - Neck Neck exam general surgery: Present: supple, trachea midline. Absent: lymphadenopathy - Respiratory Respiratory exam: Present: CTAB. Absent: accessory muscle use, rales, rhonchi, wheezes - Cardiovascular Cardiovascular exam: Present: RRR, +S1, +S2. Absent: diastolic murmur, gallop, rubs, systolic murmur - GI/Abdominal GI/Abdominal exam: Present: normal bowel sounds, soft, no peritoneal signs. Absent: distended, tenderness - Extremities Exam Extremities exam: Present: warm, radial pulses palpable and symmetrical. Absent : calf tenderness, cyanotic, pedal edema - Neurological Exam Neurological exam: Present: CN II-XII intact, oriented X3, no focal deficits. Absent: pronater drift, facial droop, speech deficit - Skin Skin exam: Present: dry, intact Internal Medicine: Result - Labs CBC & Chem 7: 07/26/17 03:57 07/28/17 03:40 Labs: BMP 07/28/17 03:40 Sodium 139 Potassium 4.9 H Chloride 105 Carbon Dioxide 28 BUN 18 Creatinine 1.41 H Glucose 129 H Calcium 8.8 Liver Function 07/28/17 Range/Units 03:40 Total Bilirubin 0.5 (0.2-1.2) mg/dL AST 24 (5-34) Units/L ALT 21 (0-55) Units/L Alkaline Phosphatase 76 (38-126) Units/L Albumin 2.6 L (3.5-5.0) g/dL - ABG Interpretation ABG results: PT/INR, D-dimer PT 14.4 Seconds (9.4-12.1) H 07/23/17 03:42 Consult Discharge Plan - Plan Instructions: Atrial Fibrillation (DC), Chronic Dysphagia (DC) Referrals: Alexandra Lugo CNP [Advanced Practice Nurse] - 08/07/17 10:30 am Nick Unger DO [Non-Partnered Physician] - 10/07/17 9:30 am
[2017-07-29 04:14] LABS: Basophils % 0.7 %; Eosinophils # 0.2 K/mcL (0.0-0.6); Eosinophils % 3.4 %; Hemoglobin 8.6 g/dL (11.5-15.4); Immature Granulocytes % 0.4 % (0-4); Lymphocytes # 0.9 K/mcL (0.6-4.6); Lymphocytes % 16.1 %; Mean Corpuscular HGB Conc 29.7 g/dL (31.6-35.5); Mean Platelet Volume 11.2 fL (9.4-12.4); Monocytes # 0.5 K/mcL (0.0-1.3); Platelet Count 150 K/mcL (140-400); Red Blood Count 3.58 M/mcL (3.82-4.97); Red Cell Distribution Width 20.3 % (11.5-14.5); Segmented Neutrophils % 70.4 %
[2017-07-29 04:27] LABS: Albumin 2.6 g/dL (3.5-5.0); Albumin/Globulin Ratio 0.9 (1.1-2.2); Bilirubin,Total 0.5 mg/dL (0.2-1.2); Calcium 8.4 mg/dL (8.6-10.8); Potassium 5.1 mEq/L (3.5-4.5); Total Protein 5.6 g/dL (6.0-8.3)
[2017-07-29 06:19] LABS: Urine Collection Duration RANDOM hr; Urine Collection Volume RANDOM mL
--- NOTE | 2017-07-29 08:10 | Internal Med Progress Note ---
Date of Encounter: 07/29/17 Time of Encounter: 08:09 - Constitutional Vitals: Temp Pulse Resp BP Pulse Ox 97.7 F 77 18 113/73 96 07/29/17 06:43 07/29/17 06:43 07/29/17 06:43 07/29/17 06:43 07/29/17 06:43 General appearance: Present: A&O X 3, answers questions appropriately Internal Medicine: Result - Labs CBC & Chem 7: 07/29/17 04:00 07/29/17 04:00 Labs: Short CBC 07/29/17 Range/Units 04:00 WBC 5.7 (4.3-11.1) K/mcL Hgb 8.6 L (11.5-15.4) g/dL Hct 29.0 L (35.3-44.9) % Plt Count 150 (140-400) K/mcL Neutrophils # 4.0 (1.6-8.9) K/mcL BMP 07/29/17 04:00 Sodium 139 Potassium 5.1 H Chloride 106 Carbon Dioxide 30 H BUN 19 Creatinine 1.24 H Glucose 89 Calcium 8.4 L Liver Function 07/29/17 Range/Units 04:00 Total Bilirubin 0.5 (0.2-1.2) mg/dL AST 20 (5-34) Units/L ALT 20 (0-55) Units/L Alkaline Phosphatase 73 (38-126) Units/L Albumin 2.6 L (3.5-5.0) g/dL - ABG Interpretation ABG results: PT/INR, D-dimer PT 14.4 Seconds (9.4-12.1) H 07/23/17 03:42 Consult Discharge Plan - Plan Instructions: Atrial Fibrillation (DC), Chronic Dysphagia (DC) Referrals: Alexandra Lugo CNP [Advanced Practice Nurse] - 08/07/17 10:30 am Nick Unger DO [Non-Partnered Physician] - 10/07/17 9:30 am
[2017-07-29] MEDS: Isosorbide MONOnitrate (24 HR) 30 MG TAB.ER.24H PO SCH (08:34)
[2017-07-29] MEDS: *HR* Amiodarone 200 MG TABLET PO SCH ×2 (08:34→21:10)
[2017-07-29] MEDS: Ranolazine 500 MG TAB.ER.12H PO SCH ×2 (08:34→21:09)
[2017-07-29] MEDS: *HR* OxyCODONE ER (12 HR) 20 MG TABLET PO SCH ×3 (08:34→23:03)
[2017-07-29] MEDS: *HR* Dabigatran 75 MG CAPSULE PO SCH ×2 (08:34→21:09)
[2017-07-29] MEDS: Loratadine 10 MG TABLET PO SCH (08:35)
[2017-07-29] MEDS: Aspirin Enteric Coated 81 MG Tablet PO SCH (08:35)
[2017-07-29] MEDS: Sennosides/Docusate Sodium TABLET PO SCH ×2 (08:35→21:09)
[2017-07-29] MEDS: MESALAMINE 400 MG PO SCH ×2 (08:36→21:11)
[2017-07-29] MEDS: Nystatin Cream 15 GM TUBE TP SCH ×2 (08:36→21:10)
[2017-07-29] MEDS: Ondansetron ODT 4 MG TAB.RAPDIS SL PRN ×3 (08:53→23:03)
[2017-07-29 09:58] LABS: IFE Reflexed NOT DONE
--- NOTE | 2017-07-29 18:56 | Internal Med Progress Note ---
Date of Encounter: 07/29/17 Time of Encounter: 18:55 - Assessment and plan (1) Constipation Current Visit: Yes Status: Acute Assessment and plan: could be due to narcotics and delayed transit. Start Senna Plus and PRN Miralax ; will give tap water enema today. 07/28/2017 finally had BM today she is keen to get enema. 07/29/2017. Patient had a couple of bowel movements since this morning. Patient is feeling much better as compared to yesterday. Patient will probably go home tomorrow Qualifiers: Constipation type: drug induced constipation Qualified Code(s): K59.03 - Drug induced constipation (2) CKD (chronic kidney disease) stage 4, GFR 15-29 ml/min Current Visit: Yes Status: Chronic Assessment and plan: Improving/Stable kidney function. nephrology on board and will follow recommendations. (3) Nausea & vomiting Current Visit: Yes Status: Resolved Assessment and plan: improved nausea and vomiting. no abdominal pain Qualifiers: Vomiting type: unspecified Vomiting Intractability: non-intractable Qualified Code(s): R11.2 - Nausea with vomiting, unspecified (4) Hyperkalemia, diminished renal excretion Current Visit: Yes Status: Acute Assessment and plan: Improved with improving renal function. Low potassium diet. Telemetry monitoring. 07/28/2017 K : 4.9 downward trend - Subjective Interval history: seen and examined chart reviewed patient is constipated and restless. daughter at bedside. 07/29/2017. Patient seen and examined. Chart reviewed. Patient is having no more constipated. Patient had a couple of bowel movements. - Constitutional Vitals: Temp Pulse Resp BP Pulse Ox 98.9 F 78 20 134/76 93 07/29/17 18:39 07/29/17 18:39 07/29/17 18:39 07/29/17 18:39 07/29/17 18:39 General appearance: Present: A&O X 3, answers questions appropriately - Head Head exam: Present: atraumatic, normocephalic - Eye Eye exam: Present: PERRL, conjuntiva pink, sclera anicteric Pupils: Present: PERRL - Neck Neck exam general surgery: Present: supple, trachea midline. Absent: lymphadenopathy - Respiratory Respiratory exam: Present: CTAB. Absent: accessory muscle use, rales, rhonchi, wheezes - Cardiovascular Cardiovascular exam: Present: RRR, +S1, +S2. Absent: diastolic murmur, gallop, rubs, systolic murmur - GI/Abdominal GI/Abdominal exam: Present: normal bowel sounds, soft, no peritoneal signs. Absent: distended, tenderness - Extremities Exam Extremities exam: Present: warm, radial pulses palpable and symmetrical. Absent : calf tenderness, cyanotic, pedal edema - Neurological Exam Neurological exam: Present: CN II-XII intact, oriented X3, no focal deficits. Absent: pronater drift, facial droop, speech deficit - Skin Skin exam: Present: dry, intact Internal Medicine: Result - Labs CBC & Chem 7: 07/29/17 04:00 07/29/17 04:00 Labs: Short CBC 07/29/17 Range/Units 04:00 WBC 5.7 (4.3-11.1) K/mcL Hgb 8.6 L (11.5-15.4) g/dL Hct 29.0 L (35.3-44.9) % Plt Count 150 (140-400) K/mcL Neutrophils # 4.0 (1.6-8.9) K/mcL BMP 07/29/17 04:00 Sodium 139 Potassium 5.1 H Chloride 106 Carbon Dioxide 30 H BUN 19 Creatinine 1.24 H Glucose 89 Calcium 8.4 L Liver Function 07/29/17 Range/Units 04:00 Total Bilirubin 0.5 (0.2-1.2) mg/dL AST 20 (5-34) Units/L ALT 20 (0-55) Units/L Alkaline Phosphatase 73 (38-126) Units/L Albumin 2.6 L (3.5-5.0) g/dL - ABG Interpretation ABG results: PT/INR, D-dimer PT 14.4 Seconds (9.4-12.1) H 07/23/17 03:42 Consult Discharge Plan - Plan Instructions: Atrial Fibrillation (DC), Chronic Dysphagia (DC) Referrals: Alexandra Lugo CNP [Advanced Practice Nurse] - 08/07/17 10:30 am Nick Unger DO [Non-Partnered Physician] - 10/07/17 9:30 am
--- NOTE | 2017-07-30 07:46 | Discharge Summary ---
Date of Encounter: 07/30/17 Time of Encounter: 07:43 - Discharge Diagnosis (1) Constipation Priority: Primary Status: Acute Qualifiers: Constipation type: drug induced constipation Qualified Code(s): K59.03 - Drug induced constipation (2) CKD (chronic kidney disease) stage 4, GFR 15-29 ml/min Priority: Secondary Status: Chronic (3) Nausea & vomiting Priority: Primary Status: Resolved Qualifiers: Vomiting type: unspecified Vomiting Intractability: non-intractable Qualified Code(s): R11.2 - Nausea with vomiting, unspecified (4) Hyperkalemia, diminished renal excretion Priority: Secondary Status: Acute - Discharge Medications Home Medications: Amiodarone HCl [Pacerone] 100 mg PO BID 07/22/17 [History] Aspirin [Lo-Dose Aspirin EC] 81 mg PO DAILY 07/22/17 [History] Dabigatran [Pradaxa] 75 mg PO BID 07/22/17 [History] Furosemide [Lasix] 20 mg PO DAILY 07/22/17 [History] Isosorbide MONOnitrate (24 HR) [Imdur] 30 mg PO DAILY 07/22/17 [History] Levothyroxine [Synthroid] 75 mcg PO QAM 07/22/17 [History] Loratadine [Claritin] 10 mg PO DAILY 07/22/17 [History] Mesalamine [Delzicol] 400 mg PO BID 07/22/17 [History] Metoprolol Tartrate [Lopressor] 25 mg PO BID 07/22/17 [History] Naloxegol Oxalate [Movantik] 12.5 mg PO DAILY 07/22/17 [History] OxyCODONE ER (12 HR) [OxyCONTIN] 20 mg PO Q8HR 07/22/17 [History] Pravastatin Sodium [Pravachol] 80 mg PO DAILY 07/22/17 [History] Ranolazine [Ranexa] 500 mg PO BID 07/22/17 [History] Sennosides/Docusate Sodium [Stool Softener Tablet] 1 each PO BID 07/22/17 [ History] Metoprolol [Lopressor] 25 mg PO Q8HR #90 tablet 07/25/17 [Rx] Ondansetron ODT [Zofran ODT] 4 mg SL Q4HR PRN #120 tab.rapdis 07/25/17 [Rx] Pantoprazole Sodium [Protonix] 40 mg PO DAILY #30 tablet. 07/25/17 [Rx] Allergies/Adverse Reactions: 3 Allergy/AdvReac Type Severity Reaction Status Date / Time lorazepam [From Ativan] Allergy Hallucinati Verified 07/22/17 10:57 ng promethazine [From Phenergan] Allergy See Verified 07/22/17 10:56 Comments acetaminophen AdvReac See Verified 07/22/17 10:57 [From Darvocet-N] Comments propoxyphene AdvReac See Verified 07/22/17 10:57 [From Darvocet-N] Comments Procedures/tests Complete & Pending: Procedures Performed prior 72 hours Category Date Time Status US retroperitoneal comp [US] Routine Exams 07/27/17 14:00 Completed Date of admission: 07/26/17 09:41 Primary care physician: PCP NONE Consults: 07/22/17 19:48 Consult to Gastroenterology [CONS] Routine Consulting Provider: [facility] [place] Reason for Consult: Patient has intractable N/V for the past 3 days and hx of esophageal stricture. Patient also reports severe lower abdominal pain for the past 3 days but states her stomach has been painful for two months. Hx of chronic constipation d/t opioid use. Call Completed: No 07/22/17 21:43 Consult to Independent Jeweler [CONS] Routine Reason for SW Consult: Assess patient for home needs for post-discharge planning. 07/22/17 21:44 Consult to Physical Therapy [CONS] Routine Comment: Evaluate, develop and implement POC Reason for Consult: Patient presents with generalized weakness. Please assess for strength, stability, ambulation, and assistive needs for post-discharge planning. 07/22/17 21:45 Consult to Occupational Therapy [CONS] Routine Comment: Evaluate, develop and implement POC Reason for Consult: Patient presents with generalized weakness. Please assess for strength, stability, ambulation, and assistive needs for post-discharge planning. 07/22/17 22:29 Consult to Nutrition [CONS] Routine Comment: Consulting Provider: NUTRITION Reason for Dietary Consult: PO Supplementation 07/23/17 09:55 Consult to Cardiology [CONS] Routine Comment: Consulting Provider: Cardiology [place] Reason for Consult: hx a-fib, now with breakthru RVR with exertion Call Completed: Yes 07/26/17 08:07 Consult to Nephrology [CONS] Routine Consulting Provider: [facility] Reason for Consult: worsening renal fx and hyperkalemia Call Completed: Yes Discharging clinician: Isidro Díaz - Patient Status Disposition: Home Health Service Condition: Fair Overall status at discharge: patient is progressing back to baseline - Discharge Instructions Instructions: Atrial Fibrillation (DC), Chronic Dysphagia (DC) Follow Up With: Alexandra Lugo CNP [Advanced Practice Nurse] - 08/07/17 10:30 am Nick Unegr DO [Non-Partnered Physician] - 10/07/17 9:30 am - Diet and Activity Activity: increase activity as tolerated Diet: low fat, low cholesterol Hospital course: Ms. Wagner is a 89 year old female - Time Spent with Patient Total time spent providing and/or coordinating discharge services: - Constitutional Vitals: Temp Pulse Resp BP Pulse Ox 97.8 F 103 17 131/70 96 07/30/17 06:50 07/30/17 06:50 07/30/17 06:50 07/30/17 06:50 07/30/17 06:50 General appearance: Present: A&O X 3, answers questions appropriately - Head Head exam: Present: atraumatic, normocephalic - Eye Eye exam: Present: PERRL, conjuntiva pink, sclera anicteric Pupils: Present: PERRL - Neck Neck exam general surgery: Present: supple, trachea midline. Absent: lymphadenopathy - Respiratory Respiratory exam: Present: CTAB. Absent: accessory muscle use, rales, rhonchi, wheezes - Cardiovascular Cardiovascular exam: Present: RRR, +S1, +S2. Absent: diastolic murmur, gallop, rubs, systolic murmur - GI/Abdominal GI/Abdominal exam: Present: normal bowel sounds, soft, no peritoneal signs. Absent: distended, tenderness - Extremities Exam Extremities exam: Present: warm, radial pulses palpable and symmetrical. Absent : calf tenderness, cyanotic, pedal edema - Neurological Exam Neurological exam: Present: CN II-XII intact, oriented X3, no focal deficits. Absent: pronater drift, facial droop, speech deficit - Skin Skin exam: Present: dry, intact
[2017-07-30 08:02] LABS: Albumin 2.7 g/dL (3.5-5.0); Albumin/Globulin Ratio 0.8 (1.1-2.2); Bilirubin,Total 0.6 mg/dL (0.2-1.2); Calcium 8.5 mg/dL (8.6-10.8); Globulin 3.3 g/dL (2.4-3.5); Potassium 4.8 mEq/L (3.5-4.5)
[2017-07-30 08:42] LABS: Basophils % 0.7 %; Eosinophils % 2.7 %; Hematocrit 30.2 % (35.3-44.9)
[2017-07-30 08:49] LABS: Eosinophils # 0.2 K/mcL (0.0-0.6); Hemoglobin 9.4 g/dL (11.5-15.4); Immature Granulocytes % 0.7 % (0-4); Lymphocytes # 0.7 K/mcL (0.6-4.6); Lymphocytes % 11.4 %; Mean Corpuscular HGB Conc 31.1 g/dL (31.6-35.5); Mean Corpuscular Hemoglobin 24.9 pg (28.0-33.3); Mean Corpuscular Volume 79.9 fL (83.0-100.0); Mean Platelet Volume 12.9 fL (9.4-12.4); Monocytes # 0.5 K/mcL (0.0-1.3); Monocytes % 8.8 %; Neutrophils # 4.5 K/mcL (1.6-8.9); Platelet Count 158 K/mcL (140-400); Red Blood Count 3.78 M/mcL (3.82-4.97); Red Cell Distribution Width 20.6 % (11.5-14.5); Segmented Neutrophils % 75.7 %
--- NOTE | 2017-07-30 08:54 | Nephrology Progress Note ---
Date of Encounter: 07/30/17 Time of Encounter: 08:35 - Assessment and Plan (1) CKD (chronic kidney disease) stage 4, GFR 15-29 ml/min Current Visit: Yes Status: Chronic CKD 3-4 most likely in setting of hypertensive nephropathy. Renal US unremarkable. Creat 1.34, K 4.8.Will follow in office. Subjective Principal diagnosis: nausea/vomiting Interval history: Sitting up in chair. Daughter at bedside. States being discharged today. Objective - Vital Signs Vital signs: Vital Signs Temp Pulse Resp BP Pulse Ox 07/30/17 06:50 97.8 F 103 17 131/70 96 07/30/17 03:12 98.1 F 71 16 125/76 97 07/29/17 22:43 98.0 F 73 16 162/89 98 07/29/17 18:39 98.9 F 78 20 134/76 93 07/29/17 15:17 98.6 F 75 20 123/79 94 07/29/17 11:35 98.0 F 80 16 94/59 96 Intake and Output 07/29/17 07/30/17 07/30/17 23:59 07:59 15:59 Intake Total 350 / 350 Balance 350 / 350 Intake: Oral 350 / 350 Other: Weight 71.486 kg Patient Weight 07/30/17 23:59 Weight 71.486 kg - General Appearance General appearance: Present: well-developed, well-nourished, appears started age EENT: Present: mucous membranes moist Neck: Present: no JVD Respiratory: Present: clear Cardiology: Present: no edema, regular rate, regular rhythm Gastrointestinal: Present: normoactive bowel sounds, no tenderness Integumentary: Present: warm and dry Neurologic: Present: alert and oriented x3 Psychiatric: Present: mood/affect appropriate, cooperative - Lab 07/30/17 06:47 07/30/17 06:47 Most recent lab results Calcium 8.5 mg/dL (8.6-10.8) L 07/30/17 06:47 Phosphorus 2.5 mg/dL (2.3-4.7) 07/27/17 04:05 Magnesium 1.9 mg/dL (1.6-2.6) 07/23/17 03:42 Urine Total Protein SEE NOTE mg/d (10-140) 07/26/17 15:54 Consult Discharge Plan - Plan Instructions: Atrial Fibrillation (DC), Chronic Dysphagia (DC) Referrals: Alexandra Lugo CNP [Advanced Practice Nurse] - 08/07/17 10:30 am Nick Unger DO [Non-Partnered Physician] - 10/07/17 9:30 am
[2017-07-30] MEDS: Sennosides/Docusate Sodium TABLET PO SCH (09:23)
[2017-07-30] MEDS: Isosorbide MONOnitrate (24 HR) 30 MG TAB.ER.24H PO SCH (09:23)
[2017-07-30] MEDS: *HR* OxyCODONE ER (12 HR) 20 MG TABLET PO SCH (09:24)
[2017-07-30] MEDS: *HR* Dabigatran 75 MG CAPSULE PO SCH (09:24)
[2017-07-30] MEDS: *HR* Amiodarone 200 MG TABLET PO SCH (09:25)
[2017-07-30] MEDS: Loratadine 10 MG TABLET PO SCH (09:25)
[2017-07-30] MEDS: Aspirin Enteric Coated 81 MG Tablet PO SCH (09:25)
[2017-07-30] MEDS: Ranolazine 500 MG TAB.ER.12H PO SCH (09:25)
[2017-07-30] MEDS: Nystatin Cream 15 GM TUBE TP SCH (09:26)
[2017-07-30] MEDS: MESALAMINE 400 MG PO SCH (09:26)
[2017-07-30] MEDS: Ondansetron ODT 4 MG TAB.RAPDIS SL PRN (09:33)
[2017-07-30 10:30] VITALS: BP 124/80
== END 2017-07-30 11:15 | disposition home health service (06) | DRG 309 ==
LOC: 3BNU → SUATTDRO 15:50 → 3BNU 07-28 18:26
PROVIDERS: ADMIT Registered Nurse; ATTEND Internal Medicine
PROC: ENDOEBX (2017-07-23 15:00)

== ENCOUNTER 2017-08-08 04:09 | Inpatient (IN) ==
[2017-08-08 07:08] LABS: ABG Base Excess -10 mEq/L (-2 to 3); ABG HCO3 18 mEq/L (21-27); ABG Oxygen Saturation 28 % (95-98); ABG PCO2 45 mmHg (35-45); ABG PH 7.21 pH Units (7.32-7.45); ABG PO2 22 mmHg (85-104); ABG TCO2 19 mEq/L (20-26); Blood Gas Modality ASSIST CONTROL; Blood Gas PEEP 5 cm H2O; Blood Gas Respiration Rate 14; Blood Gas VT 400 cc
[2017-08-08] MEDS ORDERED: FentaNYL (PF) 1,000 MCG in 0.9 % Sodium Chloride 80 ML IVC SCH (07:15)
[2017-08-08] MEDS ORDERED: Vancomycin 1,000 MG in D5% in Water 250 ML IVPB ONE (07:33)
[2017-08-08 07:35] LABS: ABG Base Excess -10 mEq/L (-2 to 3); ABG HCO3 16 mEq/L (21-27); ABG Oxygen Saturation 96 % (95-98); ABG PCO2 32 mmHg (35-45); ABG PO2 89 mmHg (85-104); ABG TCO2 17 mEq/L (20-26); Blood Gas Modality ASSIST CONTROL; Blood Gas PEEP 5 cm H2O; Blood Gas Respiration Rate 18; Blood Gas VT 400 cc
--- NOTE | 2017-08-08 07:48 | Pulmonology History & Physical ---
<Julia Bright - Last Filed: 08/08/17 10:40> Date of Encounter: 08/08/17 Time of Encounter: 07:48 Assessment and Plan (1) Encephalopathy Current visit: Yes Status: Acute (2) Acute respiratory failure with hypoxia Current visit: Yes Status: Acute (3) Severe sepsis Current visit: Yes Status: Acute Continue care (4) Lactic acidosis Current visit: No Status: Acute Patient presented with lactic acid of 16.7. 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 Holding nehprotoxic agents (6) Hyperkalemia, diminished renal excretion Current visit: No Status: Acute Hx of hyperkalemia ECG reviewed prior, RBBB morphology is seen on EKG (7) NSTEMI (non-ST elevated myocardial infarction) Current visit: Yes Status: Acute (8) CAD (coronary artery disease) Current visit: No Status: Chronic (9) Atrial fibrillation Current visit: No Status: Chronic Chads 2 vasc score 6 (age, gender, HTN, vascular disease, and CHF) On telemetry (10) Ischemic cardiomyopathy Current visit: Yes Status: Acute (11) CHF (congestive heart failure) Current visit: No Status: Acute Acute on chronic CHF Per previous inpatient notes, patient had recent ECHO within last two months as outpatient hospital (12) Goals of care, counseling/discussion Current visit: Yes Status: Acute Dr. Zavaleta at bedside,called for family meeting at 7:40 AM Discussed condition with both POAs over phone who confirmed DNR-Comfort Care code status Appropriate Pain management initiated Palliative care consulted DNR status to be reviewed, per family with palliative care consult History of Present Illness Chief complaint: Cardiac arrest, Debility HPI: Ms. Wagner is a 89 year old female with history of CHF, A. fib and chronic kidney disease presenting from [place], following EMS report of cardiac arrest with initial chief complaint of shortness of breath. Prior to this she had had a brief hospitalization for paroxysmal A. fib and hyperkalemia.Patient was unresponsive and was without pulse. EMS initiated CPR and intubation during transport to ED. Per daughter, living will designates two sons living out of state as POAs and declared code status as DNR. This status was verified this morning at 7:40 AM, with daughter calling both sons on speaker phone and family verifying goals of care. Per patient's daughter the patient has been lethargic and having hallucinations since being started on Neurontin 1 week ago in ED for leg cramps. She had not followed up with her primary care doctor since her last ED visit here when she was started on Neurontin. Daughter states she has had decreased appetite and decreased urine output over the past 2 days. Past Med Surg Social Fam HX - Past Medical History Medical history: arthritis, atrial fibrillation, coronary artery disease, GERD, hyperlipidemia, hypertension, myocardial infarction, thyroid disease, other Psychiatric history: no psych history - Past Surgical History Surgical History: coronary bypass (CABG) (1985 and 2000) - Social History Smoking Status: Never smoker Smokeless Tobacco Status: No Alcohol use: none Drug use: none - Family History Father Family Member Ethnicity: Non- Living Status: Hx Family Cardiac Disorders: Yes ([place], CAD, HTN) Hx Family GI Disorders: Yes (IBS) Mother Family Member Ethnicity: Non- Living Status: Hx Family Cardiac Disorders: Yes ([place]) Brother Family Member Ethnicity: Non- Living Status: Hx Family Cardiac Disorders: Yes ([place]) Sister Family Member Ethnicity: Non- Living Status: Hx Family Cardiac Disorders: Yes ([place]) Medications and Allergies Amiodarone HCl [Pacerone] 100 mg PO BID 07/22/17 [History] Aspirin [Lo-Dose Aspirin EC] 81 mg PO DAILY 07/22/17 [History] Dabigatran [Pradaxa] 75 mg PO BID 07/22/17 [History] Furosemide [Lasix] 20 mg PO DAILY 07/22/17 [History] Isosorbide MONOnitrate (24 HR) [Imdur] 30 mg PO DAILY 07/22/17 [History] Levothyroxine [Synthroid] 75 mcg PO QAM 07/22/17 [History] Loratadine [Claritin] 10 mg PO DAILY 07/22/17 [History] Mesalamine [Delzicol] 400 mg PO BID 07/22/17 [History] Naloxegol Oxalate [Movantik] 12.5 mg PO DAILY 07/22/17 [History] OxyCODONE ER (12 HR) [OxyCONTIN] 20 mg PO Q8HR 07/22/17 [History] Pravastatin Sodium [Pravachol] 80 mg PO DAILY 07/22/17 [History] Ranolazine [Ranexa] 500 mg PO BID 07/22/17 [History] Sennosides/Docusate Sodium [Stool Softener Tablet] 1 each PO BID 07/22/17 [ History] Metoprolol [Lopressor] 25 mg PO Q8HR #90 tablet 07/25/17 [Rx] Ondansetron ODT [Zofran ODT] 4 mg SL Q4HR PRN #120 tab.rapdis 07/25/17 [Rx] Pantoprazole Sodium [Protonix] 40 mg PO DAILY #30 tablet. 07/25/17 [Rx] Gabapentin [Neurontin] 100 mg PO TID #30 capsule 07/31/17 [Rx] 3 Allergy/AdvReac Type Severity Reaction Status Date / Time lorazepam [From Ativan] Allergy Hallucinati Verified 08/08/17 01:52 ng promethazine [From Phenergan] Allergy See Verified 08/08/17 01:52 Comments acetaminophen AdvReac See Verified 08/08/17 01:52 [From Darvocet-N] Comments propoxyphene AdvReac See Verified 08/08/17 01:52 [From Darvocet-N] Comments ROS unobtainable: due to endotracheal tube, due to mental status All Systems: As documented above in the HPI. Physical Examination Vital Signs: Vital Signs, Last 4 Hours Resp Pulse Ox 08/08/17 07:36 18 95 General appearance: other (sedated this AM) Neck: supple Auscultation: bilateral: diminished breath sounds Cardiovascular: irregular rhythm Gastrointestinal: hypoactive bowel sounds, non-distended Integumentary: other (approx 0.5 -1 cm senile purpura evident on UE, no petechiae) Extremities: cool unable to assess due to mental status Results - Laboratory Findings ABG ABG pH 7.30 pH Units (7.32-7.45) L 08/08/17 07:32 ABG pCO2 32 mmHg (35-45) L 08/08/17 07:32 ABG pO2 89 mmHg (85-104) D 08/08/17 07:32 ABG O2 Saturation 96 % (95-98) 08/08/17 07:32 Abnormal lab findings: Abnormal lab results ABG pH 7.30 pH Units (7.32-7.45) L 08/08/17 07:32 ABG pCO2 32 mmHg (35-45) L 08/08/17 07:32 ABG HCO3 16 mEq/L (21-27) L 08/08/17 07:32 ABG Total CO2 17 mEq/L (20-26) L 08/08/17 07:32 ABG Base Excess -10 mEq/L (-2 to 3) L 08/08/17 07:32 POC Glucose 208 (58-89) H 08/08/17 06:50 - Diagnostic Findings Chest x-ray: image reviewed CT scan - chest: image reviewed <Diego Zavaleta W - Last Filed: 08/08/17 11:29> Date of Encounter: 08/08/17 History of Present Illness HPI: Ms. Wagner is a 89 year old female All Systems: A 10-system review of systems was performed and is negative for pertinent findings except as documented above in the HPI. Physical Examination Vital Signs: Vital Signs, Last 4 Hours Temp Pulse Resp BP Pulse Ox 08/08/17 10:00 97.4 F L 97 16 122/94 80 08/08/17 09:00 89 12 121/84 79 08/08/17 08:00 73 16 98/68 90 08/08/17 07:36 18 95 Results - Laboratory Findings ABG ABG pH 7.30 pH Units (7.32-7.45) L 08/08/17 07:32 ABG pCO2 32 mmHg (35-45) L 08/08/17 07:32 ABG pO2 89 mmHg (85-104) D 08/08/17 07:32 ABG O2 Saturation 96 % (95-98) 08/08/17 07:32 Abnormal lab findings: Abnormal lab results ABG pH 7.30 pH Units (7.32-7.45) L 08/08/17 07:32 ABG pCO2 32 mmHg (35-45) L 08/08/17 07:32 ABG HCO3 16 mEq/L (21-27) L 08/08/17 07:32 ABG Total CO2 17 mEq/L (20-26) L 08/08/17 07:32 ABG Base Excess -10 mEq/L (-2 to 3) L 08/08/17 07:32 POC Glucose 208 (58-89) H 08/08/17 06:50 - Attending Attestation I examined this patient and my medical decision-making was reviewed with the Resident Physician. I agree with the documented findings, disposition and treatment plan as described except to the extent set forth below. We independently had [id number] contact with the patient I spent 45min of Critical Care time with this patient. It involved decision making of high complexity to assess, manipulate, and support vital organ system failure and/or to prevent further life threatening deterioration of the patient' s condition. The time involved in the performance of separately reportable procedures was not counted toward critical care time. Patient seen and examined at bedside Labs, radiology, chart personally reviewed. Management was reviewed during multidisciplinary critical care rounds. This is an 89-year-old woman with a past medical history of severe coronary artery disease CHF atrial fibrillation who is had multiple interventions in the past for these problems including CABG on 2 separate occasions. She is also suffered from study clinically deterioration and multiple hospitalizations over the last 3-4 months. She was at home and found to be lethargic and having difficulty breathing EMS was called on arrival they were unable to obtain a pulse and per report ACLS was started 1 round intubation was performed in the field presented to [facility] ED where she was noted to have lactate greater than 16 troponin elevation severe metabolic derangements including metabolic and respiratory acidosis and CT scan notable for colitis. She was transferred to [facility] for further evaluation. On arrival blood pressure was stable off vasopressors she was intubated she did have spontaneous movements but was very encephalopathic. Antimicrobials have been administered and as further aggressive care was being initiated the patient's daughter Nalini this also her healthcare power of energy attorney enter the room and explained that her mother "did not want any of this done". Currently recently mother had changed her CODE STATUS to DNR comfort care and did not want any heroic measures such as CPR or intubation performed unfortunately both of these had been undertaken prior to admission to this hospital. I spoke with of on and explained the overall grim prognosis giving laboratory abnormalities and said that respecting her mother's wishes we would a couple her from the mechanical ventilator which she said was at her mothers best wishes. I also explained the case to her 2 other adult children Angel and "Kwabena" who were in agreement that mother did not want these interventions performed. As a result palliative care team was consulted there is some confusion about overall goals of care as daughter had wished that "some workup be done" but not intubation/CPR I explained that her mother was profoundly ill had severe metabolic derangements including kidney injury evidence of an STEMI with possible ACS likely severe sepsis and lactate greater than 16 along with acute respiratory insufficiency all portending an extremely poor prognosis requiring aggressive medical care including mechanical ventilation to maintain respiratory status and cardiac perfusion. When I explained the severity of the case further Nalini the healthcare power of energy attorney explained that she understood and did not want to pursue those aggressive measures and would like to transition to comfort care per her mother's wishes. I rediscussed the case with the palliative care service Dr. Lu who was in agreement with plan to transition to hospice care. The patient is unable to participate in giving a history and/or making treatment decisions. The discussion was necessary for determining treatment decisions. This discussion took place in the ICU. The total meeting time was in aggregate 30minutes.
[2017-08-08] MEDS ORDERED: Vancomycin 0 MG in D5% in Water 250 ML IVPB SCH (08:00)
[2017-08-08] MEDS ORDERED: Vancomycin 1 EACH in EMPTY BAG 1 EACH IVPB SCH (08:00)
[2017-08-08] MEDS ORDERED: MetroNIDAZOLE 500 MG/100 ML 500 MG/100 ML BAG IVPB SCH (08:00)
[2017-08-08] MEDS ORDERED: *HR* Dabigatran 75 MG CAPSULE PO SCH (09:00)
[2017-08-08] MEDS ORDERED: *HR* Amiodarone 200 MG TABLET PO SCH (09:00)
[2017-08-08] MEDS ORDERED: Isosorbide MONOnitrate (24 HR) 30 MG TAB.ER.24H PO SCH (09:00)
[2017-08-08] MEDS ORDERED: Sennosides/Docusate Sodium TABLET PO SCH (09:00)
[2017-08-08] MEDS ORDERED: Aspirin Enteric Coated 81 MG Tablet PO SCH (09:00)
[2017-08-08] MEDS ORDERED: Loratadine 10 MG TABLET PO SCH (09:00)
[2017-08-08 10:20] VITALS: BP 122/94
--- NOTE | 2017-08-08 10:47 | Palliative - Consult Note ---
<Jose Fletcher - Last Filed: 08/08/17 11:03> Date of Encounter: 08/08/17 Time of Encounter: 10:41 - Assessment and Plan (1) Cardiac arrest Current Visit: Yes Status: Acute Assessment and plan: 89F cc worsening sob had cardiac arrest in the ambulance on the way to [facility] CPR was initiated and patient was intubated and rosc was achieved in [facility] Patient was not responsive then, in respiratory distress CXR showed mild pulmonary vascular congestion patient had elevated troponin EKG showed afib rvr and cardiology consulted who state she was not candidate for cath. pateint transferred to [facility] ICU where family was contacted and it was decided that patient does not want aggressive care: patient was extubated at that point and decision was made to be comfort care only. (2) Goals of care, counseling/discussion Current Visit: Yes Status: Acute Assessment and plan: DNR-CC family: one daughter and two sons no MPOA 2 sons are legal power of criminal attorney ICU electrical superintendent state patient would need aggressive management including intubation for her to have reasonable chance to be treated successfully family has concluded they do not want to investigate cause of cardiac arrest and ongoing medical issues but want patient to be comfortable. patient started on dilauded for comfort (3) Acute respiratory failure with hypoxia Current Visit: Yes Status: Acute Assessment and plan: likely 2nd to cardiac arrest but underlying reason unclear patient is DNR_CC and family does not wish to further investigate this issue state they just want her to be comfortable. (4) Acute kidney injury superimposed on CKD Current Visit: Yes Status: Acute Assessment and plan: likely 2nd to cardiac arrest but reason unclear patient is DNR_CC and family does not wish to further investigate this issue state they just want her to be comfortable. (5) Lactic acidosis Current Visit: Yes Status: Acute Assessment and plan: lactic acid 16 underling reason unclear likely 2nd to cardiopulmonary arrest. (6) Atrial fibrillation Current Visit: Yes Status: Chronic Assessment and plan: patient in afib rvr in [facility] currently HR <100 with irregularly irregular rhythm. Qualifiers: Atrial fibrillation type: paroxysmal Qualified Code(s): I48.0 - Paroxysmal atrial fibrillation Palliative-CN HPI - Data of Consult Patient: new to practice Consult date: 08/08/17 Requesting Physician: Melissa Holland MD Primary Care Provider: PCP NONE - Consult Narrative Reason for consult: cardiac arrest patient is DNR CC History of present illness: Ms. Wagner is a 89 year old female presents from home with chief, no shortness of breath. Patient lives with her daughter. Daughter states for the past couple months she has been deteriorating. She has had decreased urinary output, worsening arthritis and in the past 48 hours difficulty breathing and increased confusion. Daughter called EMS because patient had respiratory distress. At this time patient was still awake, alert and conversing. When EMS arrived patient was found to be unresponsive and had no respirations andwas not palpated. Patient was started on CPR and intubated during transport to [facility]. Furthermore daughter states the patient is DNR CC and stated she would never want to be resuscitated, intubated but patient does not have a DO NOT RESUSCITATE Comfort Care order form. Patient has a living will and legal power of criminal attorney which are the patient's 2 sons but patient does not have a medical power of criminal attorney. Daughter states patient was recently started on home oxygen. She has a history of atrial fibrillation, CHF, chronic kidney disease. She had to increase her oxygen from 2-4 L because her lungs sounded "wet." Daughter reports getting Patient increased amount of fluids because patient had decreased urine output with dark yellow urine. Patient also has a history of multiple MIs, prior CABGs , CC: Melissa Holland MD Past Med Surg Social Fam HX - Past Medical History Medical history: arthritis, atrial fibrillation, coronary artery disease, GERD, hyperlipidemia, hypertension, myocardial infarction, thyroid disease, other Psychiatric history: no psych history - Past Surgical History Surgical History: coronary bypass (CABG) (1985 and 2000) - Social History Smoking Status: Never smoker Smokeless Tobacco Status: No Alcohol use: none Drug use: none - Family History Father Family Member Ethnicity: Non- Living Status: Hx Family Cardiac Disorders: Yes ([place], CAD, HTN) Hx Family GI Disorders: Yes (IBS) Mother Family Member Ethnicity: Non- Living Status: Hx Family Cardiac Disorders: Yes ([place]) Brother Family Member Ethnicity: Non- Living Status: Hx Family Cardiac Disorders: Yes ([place]) Sister Family Member Ethnicity: Non- Living Status: Hx Family Cardiac Disorders: Yes ([place]) Medications and Allergies HYDROmorphone (PF) [Dilaudid] 0.5 mg IVP Q1H PRN syringe 08/08/17 [Rx] 3 Allergy/AdvReac Type Severity Reaction Status Date / Time lorazepam [From Ativan] Allergy Hallucinati Verified 08/08/17 01:52 ng promethazine [From Phenergan] Allergy See Verified 08/08/17 01:52 Comments acetaminophen AdvReac See Verified 08/08/17 01:52 [From Darvocet-N] Comments propoxyphene AdvReac See Verified 08/08/17 01:52 [From Darvocet-N] Comments ROS unobtainable: due to mental status Palliative Care-Exam - Constitutional Vitals: Temp Pulse Resp BP Pulse Ox 97.4 F L 97 16 122/94 80 08/08/17 10:00 08/08/17 10:00 08/08/17 10:00 08/08/17 10:00 08/08/17 10:00 - Other Additional findings: General: unresponsive HEENT: Head atraumatic, normocephalic, PERRL, absent lymphadenopathy, Moist Mucous Membranes, Heart: irregularly irregular rhythm Lungs: Clear to auscultation bilaterally Abdomen: Soft nontender, nondistended positive bowel sounds Skin: warm and dry Extremities: Absent pedal edema, Neuro: not alert not awake, does not follow commands, b/l babinski present Vascular: Pedal and radial pulses 2 out of 4 Internal Medicine - CN: Reslt - ABG Interpretation ABG results: ABG ABG pH 7.30 pH Units (7.32-7.45) L 08/08/17 07:32 ABG pCO2 32 mmHg (35-45) L 08/08/17 07:32 ABG pO2 89 mmHg (85-104) D 08/08/17 07:32 ABG O2 Saturation 96 % (95-98) 08/08/17 07:32 Consult Discharge Plan - Plan Referrals: NONE,PCP [Primary Care Provider] - Palliative Quality Palliative Quality: Screen for Code Status: Yes, Screen for Goals of Care: Yes, Screen for Pain: Yes, If Pain Regimen Started, Initiate Bowel Regimen: Yes, Screen for Nausea/Vomitting: Yes Code Status: 08/08/17 10:21 DNR [Resuscitation Status: Active] [RES] Routine Comment: Resuscitation Status: [id number] <Greeno,Greg L - Last Filed: 08/08/17 11:36> Date of Encounter: 08/08/17 Palliative-CN HPI - Data of Consult Requesting Physician: Melissa Holland MD Primary Care Provider: PCP NONE - Consult Narrative History of present illness: Ms. Wagner is a 89 year old female CC: Melissa Holland MD Palliative Care-Exam - Constitutional Vitals: Temp Pulse Resp BP Pulse Ox 97.4 F L 97 16 122/94 80 08/08/17 10:00 08/08/17 10:00 08/08/17 10:00 08/08/17 10:00 08/08/17 10:00 Internal Medicine - CN: Reslt - ABG Interpretation ABG results: ABG ABG pH 7.30 pH Units (7.32-7.45) L 08/08/17 07:32 ABG pCO2 32 mmHg (35-45) L 08/08/17 07:32 ABG pO2 89 mmHg (85-104) D 08/08/17 07:32 ABG O2 Saturation 96 % (95-98) 08/08/17 07:32 - Attending Attestation I examined this patient and my medical decision-making was reviewed with the Resident Physician. I agree with the documented findings, disposition and treatment plan as described except to the extent set forth below. long 2 part discussion with family regarding patient's overall prognosis pulmonary firmly believes that the patient will notsurvive a workup without intubati It was clear that she would not want to be therefore has decided against any further In this overall feeling that she would not want to Under the circumstance feels that general inpati She will be transferred to [facility] service today for symptom management. Palliative Quality Code Status: 08/08/17 10:21 DNR [Resuscitation Status: Active] [RES] Routine Comment: Resuscitation Status: [id number]
[2017-08-08] MEDS ORDERED: *HR* HYDROmorphone (PF) 1 MG/ML SYRINGE IVP PRN (11:00)
--- NOTE | 2017-08-08 11:10 | Discharge Summary ---
Addendum entered and electronically signed by Julia Bright MD 08/08/17 11:49: Patient's medical POA, daughter, stated that she does not want intubation, stated this was in line with patient's wishes, and elects to discontinue medications or interventions, except for those for palliative measures. Family at bedsides and agreed to transfer to inpatient palliative care. Dr. Lu notified and accepted patient. Original Note: <Julia Bright - Last Filed: 08/08/17 11:19> Date of Encounter: 08/08/17 Time of Encounter: 11:05 - Discharge Diagnosis (1) Encephalopathy Priority: Primary Status: Acute (2) Acute respiratory failure with hypoxia Priority: Primary Status: Acute (3) Severe sepsis Priority: Primary Status: Acute (4) Lactic acidosis Priority: Primary Status: Acute (5) Acute kidney injury superimposed on CKD Priority: Primary Status: Acute (6) Hyperkalemia, diminished renal excretion Priority: Primary Status: Acute (7) NSTEMI (non-ST elevated myocardial infarction) Priority: Primary Status: Acute (8) CAD (coronary artery disease) Priority: Primary Status: Chronic Qualifiers: Coronary Disease-Associated Artery/Lesion type: [place] artery [place] vs. transplanted heart: [place] heart Associated angina: without angina Qualified Code(s): I25.10 - Atherosclerotic heart disease of [place] coronary artery without angina pectoris (9) Atrial fibrillation Priority: Primary Status: Chronic Qualifiers: Atrial fibrillation type: paroxysmal Qualified Code(s): I48.0 - Paroxysmal atrial fibrillation (10) Ischemic cardiomyopathy Priority: Primary Status: Acute (11) CHF (congestive heart failure) Priority: Primary Status: Acute Qualifiers: Congestive heart failure type: unspecified congestive heart failure type Congestive heart failure chronicity: acute on chronic Qualified Code(s): I50.9 - Heart failure, unspecified (12) Goals of care, counseling/discussion Priority: Secondary Status: Acute - Discharge Medications Home Medications: HYDROmorphone (PF) [Dilaudid] 0.5 mg IVP Q1H PRN syringe 08/08/17 [Rx] Allergies/Adverse Reactions: 3 Allergy/AdvReac Type Severity Reaction Status Date / Time lorazepam [From Ativan] Allergy Hallucinati Verified 08/08/17 01:52 ng promethazine [From Phenergan] Allergy See Verified 08/08/17 01:52 Comments acetaminophen AdvReac See Verified 08/08/17 01:52 [From Darvocet-N] Comments propoxyphene AdvReac See Verified 08/08/17 01:52 [From Darvocet-N] Comments Labs on day of discharge: Labs from last 24 hours 08/08/17 08/08/17 08/08/17 07:32 07:04 06:50 ABG pH 7.30 L 7.21 L ABG pCO2 32 L 45 ABG pO2 89 D 22 L* D ABG HCO3 16 L 18 L ABG Total CO2 17 L 19 L ABG O2 Saturation 96 28 L ABG Base Excess -10 L -10 L Respiration Rate 18 14 O2 Delivery Device ET Tube Adult Vent Blood Gas Modality ASSIST CONTROL ASSIST CONTROL Inspired O2 60.0 40.0 Tidal Volume 400 400 PEEP 5 5 POC Glucose 208 H Date of admission: 08/08/17 06:51 Primary care physician: PCP NONE Consults: 08/08/17 08:52 Consult to Palliative Care [CONS] Routine Comment: Consulting Provider: Palliative Care Regina Reason for Consult: DNR status Call Completed: No Discharging clinician: Julia Bright Anticipated date of discharge: 08/08/17 - Patient Status Disposition: Hospice - Home Condition: Critical Functional capacity at discharge: bed bound Overall status at discharge: other - Discharge Instructions Follow Up With: NONE,PCP [Primary Care Provider] - - Diet and Activity Activity: other - Hospital Course Hospital course: Ms. Wagner is a 89 year old female with a history of CHF, A. fib and chronic kidney disease presenting from [place], following EMS report of cardiac arrest with initial chief complaint of shortness of breath. Prior to this she had had a brief hospitalization for paroxysmal A. fib and hyperkalemia.Patient was unresponsive and was without pulse and EMS initiated CPR and intubation during transport to ED. POA status was unclear initially and palliative care was consulted, with code status and POA designation clarified. Patient is DNR-ComfortCare. - Time Spent with Patient Total time spent providing and/or coordinating discharge services: Physical Examination Vital Signs: Vital Signs, Last 4 Hours Temp Pulse Resp BP Pulse Ox 08/08/17 10:00 97.4 F L 97 16 122/94 80 08/08/17 09:00 89 12 121/84 79 08/08/17 08:00 73 16 98/68 90 08/08/17 07:36 18 95 General appearance: no acute distress, other ENT: oropharynx dry Effort: other (agonal breathing) Auscultation: bilateral: diminished breath sounds Cardiovascular: irregular rhythm unable to assess due to mental status <Diego Zavaleta - Last Filed: 08/09/17 06:51> Date of admission: 08/08/17 06:51 Primary care physician: PCP NONE Consults: 08/08/17 08:52 Consult to Palliative Care [CONS] Routine Comment: Consulting Provider: Palliative Care Regina Reason for Consult: DNR status Call Completed: No - Hospital Course Hospital course: Ms. Wagner is a 89 year old female - Time Spent with Patient Total time spent providing and/or coordinating discharge services: - Attending Attestation I examined this patient and my medical decision-making was reviewed with the Resident Physician. I agree with the documented findings, disposition and treatment plan as described except to the extent set forth below. We independently had [id number] contact with the patient. 89yo with advanced Ischemic Cardiomyopathy and several months of deteriorations/ frequent hospitalizations. Patient was DNRA/DNI at home when EMS arrived and possible without pulse ACLS x 1 started and intubated as code status at that time could not be clarified per report. In ICU CODE STATUS was clarified with healthcare power of attorney lawyer her daughter Nalini and also her other 2 adult children and next of kin Angel and Kwabena. Given the severity of disease presentation and need for full ICU supportive including mechanical ventilation patient was transitioned to comfort measures and transfer to hospice as inpatient.
[2017-08-08] MEDS ORDERED: Aminoglycoside Consult 1 EACH MC ONE (13:40)
--- NOTE | 2017-08-13 06:19 | Electrocardiograph Report ---
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
== END 2017-08-08 13:41 | disposition hospice, home (50) | DRG 871 ==
LOC: ICNU 06:51
PROVIDERS: ADMIT Pediatrics; ATTEND Internal Medicine Hematology & Oncology

== ENCOUNTER 2017-08-08 11:24 | Inpatient (IN) ==
--- NOTE | 2017-08-08 11:40 | Pallative History & Physical ---
<Jose Fletcher - Last Filed: 08/08/17 11:37> Date of Encounter: 08/08/17 Time of Encounter: 11:37 Assessment and Plan (1) Cardiac arrest Current visit: Yes Status: Acute 89F cc worsening sob had cardiac arrest in the ambulance on the way to [facility] CPR was initiated and patient was intubated and [facility] Patient was not responsive then, in respiratory distress CXR showed mild pulmonary vascular congestion patient had elevated troponin EKG showed afib rvr and cardiology consulted who state she was not candidate for cath. pateint transferred to [facility] ICU where family was contacted and it was decided that patient does not want aggressive care: patient was extubated at that point and decision was made to be comfort care only. (2) Goals of care, counseling/discussion Current visit: Yes Status: Acute DNR-CC family: one daughter and two sons no MPOA 2 sons are legal power of format proofreader ICU motor and generator brush cutter state patient would need aggressive management including intubation for her to have reasonable chance to be treated successfully family has concluded they do not want to investigate cause of cardiac arrest and ongoing medical issues but want patient to be comfortable. family does not want PEG tube if patient not able to feed herself. (3) Acute respiratory failure with hypoxia Current visit: Yes Status: Acute likely 2nd to cardiac arrest but underlying reason unclear patient is DNR_CC and family does not wish to further investigate this issue state they just want her to be comfortable. (4) Dyspnea Current visit: Yes Status: Acute currently resting comfortable unresponsive will start fentanyl patch with dilauded prn continue O2 supplementation for comfort. Qualifiers: Dyspnea type: unspecified Qualified Code(s): R06.00 - Dyspnea, unspecified (5) Agitation Current visit: Yes Status: Acute comfortable not agitated haldol prn Internal Medicine - H&P: HPI Chief complaint: sob Admitted From: Intrahospital Transfer Plans for Post Hospital Care: Hospice - Home History of present illness: Ms. Wagner is a 89 year old female Ms. Wagner is a 89 year old female presents from home with chief, no shortness of breath. Patient lives with her daughter. Daughter states for the past couple months she has been deteriorating. She has had decreased urinary output, worsening arthritis and in the past 48 hours difficulty breathing and increased confusion. Daughter called EMS because patient had respiratory distress. At this time patient was still awake, alert and conversing. When EMS arrived patient was found to be unresponsive and had no respirations andwas not palpated. Patient was started on CPR and intubated during transport to [facility]. Furthermore daughter states the patient is DNR CC and stated she would never want to be resuscitated, intubated but patient does not have a DO NOT RESUSCITATE Comfort Care order form. Patient has a living will and legal power of format proofreader which are the patient's 2 sons but patient does not have a medical power of format proofreader. Daughter states patient was recently started on home oxygen. She has a history of atrial fibrillation, CHF, chronic kidney disease. She had to increase her oxygen from 2-4 L because her lungs sounded "wet." Daughter reports getting Patient increased amount of fluids because patient had decreased urine output with dark yellow urine. Patient also has a history of multiple MIs, prior CABGs. Family decided to transition to hospice care as further treatment and investigation would require aggressive management including intubation. Patient was transferred from ICU to palliative care unit. Past Med Surg Social Fam HX - Past Medical History Medical history: arthritis, atrial fibrillation, coronary artery disease, GERD, hyperlipidemia, hypertension, myocardial infarction, thyroid disease, other Psychiatric history: no psych history - Past Surgical History Surgical History: coronary bypass (CABG) (1985 and 2000) - Social History Smoking Status: Never smoker Smokeless Tobacco Status: No Alcohol use: none Drug use: none - Family History Father Family Member Ethnicity: Non- Living Status: Hx Family Cardiac Disorders: Yes ([place], CAD, HTN) Hx Family GI Disorders: Yes (IBS) Mother Family Member Ethnicity: Non- Living Status: Hx Family Cardiac Disorders: Yes ([place]) Brother Family Member Ethnicity: Non- Living Status: Hx Family Cardiac Disorders: Yes ([place]) Sister Family Member Ethnicity: Non- Living Status: Hx Family Cardiac Disorders: Yes ([place]) Internal Medicine - H&P: Meds HYDROmorphone (PF) [Dilaudid] 0.5 mg IVP Q1H PRN syringe 08/08/17 [Rx] 3 Allergy/AdvReac Type Severity Reaction Status Date / Time lorazepam [From Ativan] Allergy Hallucinati Verified 08/08/17 01:52 ng promethazine [From Phenergan] Allergy See Verified 08/08/17 01:52 Comments acetaminophen AdvReac See Verified 08/08/17 01:52 [From Darvocet-N] Comments propoxyphene AdvReac See Verified 08/08/17 01:52 [From Darvocet-N] Comments ROS unobtainable: due to mental status Palliative Care-Exam - Other Additional findings: General: unresponsive HEENT: Head atraumatic, normocephalic, PERRL, absent lymphadenopathy, Moist Mucous Membranes, Heart: irregularly irregular rhythm Lungs: Clear to auscultation bilaterally Abdomen: Soft nontender, nondistended positive bowel sounds Skin: warm and dry Extremities: Absent pedal edema, Neuro: not alert not awake, does not follow commands, b/l babinski present Vascular: Pedal and radial pulses 2 out of 4 Palliative Quality Palliative Quality: Screen for Code Status: Yes, Screen for Goals of Care: Yes, Screen for Pain: Yes, If Pain Regimen Started, Initiate Bowel Regimen: Yes, Screen for Nausea/Vomitting: Yes Code Status: 08/08/17 11:33 Resuscitation Status: Active [RES] Routine Comment: Resuscitation Status: DNR-Comfort Care <Greg Lu - Last Filed: 08/08/17 11:48> Date of Encounter: 08/08/17 Internal Medicine - H&P: HPI History of present illness: Ms. Wagner is a 89 year old female Palliative Quality Code Status: 08/08/17 11:33 Resuscitation Status: Active [RES] Routine Comment: Resuscitation Status: DNR-Comfort Care - Attending Attestation I examined this patient and my medical decision-making was reviewed with the Resident Physician. I agree with the documented findings, disposition and treatment plan as described except to the extent set forth below.
[2017-08-08] MEDS ORDERED: *HR* FentaNYL PATCH 50 MCG PATCH TD SCH (12:00)
[2017-08-08] MEDS ORDERED: *HR* FentaNYL PATCH 12 MCG PATCH TD SCH (15:00)
[2017-08-08] MEDS ORDERED: Scopolamine Patch 1.5 MG PATCH.TD72 TD SCH (15:00)
[2017-08-08] MEDS: Bisacodyl 10 MG RECTAL SUPPOSITORY RC SCH (20:19)
[2017-08-09] MEDS ORDERED: Benzonatate 100 MG CAPSULE PO PRN (00:19)
[2017-08-09] MEDS: Ipratropium/Albuterol Neb 3 ML IH PRN ×3 (00:30→14:35)
[2017-08-09] MEDS: Haloperidol Lactate 5 MG/ML VIAL IVP PRN ×2 (01:48→09:30)
[2017-08-09] MEDS: *HR* HYDROmorphone (PF) 1 MG/ML SYRINGE IVP PRN ×4 (01:57→16:25)
--- NOTE | 2017-08-09 06:39 | Palliative Progress Note ---
<Jose Fletcher - Last Filed: 08/09/17 06:36> Date of Encounter: 08/09/17 Time of Encounter: 06:36 - Assessment and plan (1) Dyspnea Current Visit: Yes Status: Acute Assessment and plan: overnight patient required breathing treatments, was in respiratory distress and required use of prn haldol will increase fentanyl patch continue ativan and diluaded prn Qualifiers: Dyspnea type: unspecified Qualified Code(s): R06.00 - Dyspnea, unspecified (2) Agitation Current Visit: Yes Status: Acute Assessment and plan: comfortable not agitated at the moment continue haldol prn (3) Cardiac arrest Current Visit: Yes Status: Acute Assessment and plan: patient had cardiac arrest family noted patient would not want agressive care and was transitioned to hospice care. (4) Goals of care, counseling/discussion Current Visit: Yes Status: Acute Assessment and plan: DNR-CC family: one daughter and two sons no MPOA 2 sons are legal power of commercial real estate attorney ICU polisher eyeglass frames state patient would need aggressive management including intubation for her to have reasonable chance to be treated successfully after cardiac arrest family has concluded they do not want to investigate cause of cardiac arrest and ongoing medical issues but want patient to be comfortable. family does not want PEG tube if patient not able to feed herself. (5) Acute respiratory failure with hypoxia Current Visit: Yes Status: Acute Assessment and plan: likely 2nd to cardiac arrest but underlying reason unclear patient is DNR_CC and family did not wish to further investigate this issue state they just want her to be comfortable. managing respiratory distress with opioids, o2 supplementation, breathing treatments - Time Spent With Patient Total time spent is greater than 50% in coordination of care (as documented) at patient's floor/unit and/or counseling patient: - Subjective Interval history: Patient had respiratory distress overnight and required two breathing treatments and prn haldol for relief. Family stated the initially ordered 50mcg fentanyl patch may be too much for her and it was decreased to 12.5. Currently patient resting comfortably in bed. - Additional findings Additional findings: General: no acute distress, encephalopathic Heart: Irregularly irregular Lungs: Diffuse rhonchi Abdomen: Soft nontender, nondistended positive bowel sounds Skin: warm and dry Extremities: Absent pedal edema, Neuro: Not alert, not oriented Vascular: Pedal and radial pulses 2 out of 4 Palliative Quality Palliative Quality: Screen for Code Status: Yes, Screen for Goals of Care: Yes, Screen for Pain: Yes, If Pain Regimen Started, Initiate Bowel Regimen: Yes, Screen for Nausea/Vomitting: Yes Code Status: 08/08/17 11:33 Resuscitation Status: Active [RES] Routine Comment: Resuscitation Status: DNR-Comfort Care Consult Discharge Plan - Plan Referrals: NONE,PCP [Primary Care Provider] - <Greg Lu - Last Filed: 08/09/17 07:12> Date of Encounter: 08/09/17 - Time Spent With Patient Total time spent is greater than 50% in coordination of care (as documented) at patient's floor/unit and/or counseling patient: - Attending Attestation I examined this patient and my medical decision-making was reviewed with the Resident Physician. I agree with the documented findings, disposition and treatment plan as described except to the extent set forth below. Palliative Quality Code Status: 08/08/17 11:33 Resuscitation Status: Active [RES] Routine Comment: Resuscitation Status: DNR-Comfort Care
[2017-08-09] MEDS ORDERED: *HR* FentaNYL PATCH 50 MCG PATCH TD SCH (07:00)
[2017-08-09] MEDS: Atropine Sulfate 1% 40 DROP/2 ML BOTTLE SL PRN ×2 (12:53→16:27)
[2017-08-09] MEDS ORDERED: *HR* HYDROmorphone (PF) 1 MG/ML SYRINGE IVP ONE (16:55)
[2017-08-09] MEDS: Bisacodyl 10 MG RECTAL SUPPOSITORY RC SCH (20:07)
[2017-08-10] MEDS: Atropine Sulfate 1% 40 DROP/2 ML BOTTLE SL PRN ×2 (06:52→10:56)
[2017-08-10 07:48] VITALS: BP 136/82
[2017-08-10] MEDS: *HR* HYDROmorphone (PF) 1 MG/ML SYRINGE IVP PRN ×7 (07:58→20:14)
[2017-08-10] MEDS ORDERED: Furosemide 20 MG/2 ML VIAL IVP ONE (09:06)
[2017-08-10] MEDS ORDERED: OxyCODONE CONC 5 MG/0.25 ML ORAL.SYG PO PRN (09:08)
--- NOTE | 2017-08-10 11:11 | Palliative - Consult Note ---
Date of Encounter: 08/10/17 Time of Encounter: 09:00 - Assessment and Plan (1) Dyspnea Current Visit: Yes Status: Acute Assessment and plan: Patient with bilateral rales, SOB, tachypnea, tachycardia and frothy sputum. Loose secretions. Give one time dose 40 mg Lasix - Monitor output Duonebs Supplemental O2 Add Oxycodone po Place oral suction at bedside - suction PRN lightly HOB up Qualifiers: Dyspnea type: unspecified Qualified Code(s): R06.00 - Dyspnea, unspecified (2) Agitation Current Visit: No Status: Acute Assessment and plan: Patient with Haldol PRN. Last used at 0900 yesterday. (3) Goals of care, counseling/discussion Current Visit: Yes Status: Acute Assessment and plan: Family at bedside. Patient having SOB and tachycardia. Gave one time dose of lasix. Discussed goals of comfort with family. Family agree to medications adding lasix x1 and oxycodone po for BTP and SOB management. Family would still like to take patient home if possible. Patient enrolled in [facility] ans at present I am not sure of ability to transition home. (4) Cardiac arrest Current Visit: Yes Status: Acute Assessment and plan: patient comfort care only after suffering cardiac arrest. Palliative-CN HPI - Data of Consult Patient: new to practice Consult date: 08/10/17 Requesting Physician: Greg Lu MD Primary Care Provider: PCP NONE - Consult Narrative Palliative Care/Comfort Measures: Palliative care Reason for consult: Symptom management History of present illness: Ms. Wagner is a 89 year old female who transitioned to inpatient hospice care after being admitted for cardiac arrest. The patient was at home and became SOB, EMS was called and arrived at her home where a medical code blue was implemented and the patient received intubation and and CPR. Patient arrived to ER and was admitted to the hospital. The patient history includes A. fib, N/V, end stage CHF, prior CABGs, and MIs and CKD. The patient was transitioned to inpatient hospice care as requested by the family for comfort care. This palliative care consult is for symptom management. Upon this consult her family is surrounding the bed. The patient is breathing rapid and shallow with audible rales and oral frothy secretions. CC: Greg Lu MD Past Med Surg Social Fam HX - Past Medical History Source: old records reviewed, obtained from family, nursing notes reviewed Medical history: arthritis, atrial fibrillation, coronary artery disease, GERD, hyperlipidemia, hypertension, myocardial infarction, thyroid disease, other Psychiatric history: no psych history - Past Surgical History Surgical History: coronary bypass (CABG) - Social History Smoking Status: Never smoker Smokeless Tobacco Status: No Alcohol use: none Drug use: none Occupational status: retired Current living situation: Home, With Family Activity Level: Bed bound Recent Out of Country Travel Within the Last 8 Weeks: No Exposure or Possible Exposure to Illness During Travel: No - Family History Father Family Member Ethnicity: Non- Living Status: Hx Family Cardiac Disorders: Yes ([place], CAD, HTN) Hx Family GI Disorders: Yes (IBS) Mother Family Member Ethnicity: Non- Living Status: Hx Family Cardiac Disorders: Yes ([place]) Brother Family Member Ethnicity: Non- Living Status: Hx Family Cardiac Disorders: Yes ([place]) Sister Family Member Ethnicity: Non- Living Status: Hx Family Cardiac Disorders: Yes ([place]) Medications and Allergies HYDROmorphone (PF) [Dilaudid] 0.5 mg IVP Q1H PRN syringe 08/08/17 [Rx] 3 Allergy/AdvReac Type Severity Reaction Status Date / Time lorazepam [From Ativan] Allergy Hallucinati Verified 08/08/17 01:52 ng promethazine [From Phenergan] Allergy See Verified 08/08/17 01:52 Comments acetaminophen AdvReac See Verified 08/08/17 01:52 [From Darvocet-N] Comments propoxyphene AdvReac See Verified 08/08/17 01:52 [From Darvocet-N] Comments ROS unobtainable: due to mental status (patient unresponsive, eyes closed, noisy respirations) Review of systems: patient resting with eyes closed, unresponive. Family reports patient had quiet night. - Constitutional Constitutional ROS PAL: decreased appetite, fatigue - EENT Eyes: requires corrective lenses - Cardiovascular Cardiovascular ROS: edema, rapid heart rate - Genitourinary Palliative ROS female: urinary hesitancy - Musculoskeletal Musculoskeletal ROS IM: muscle weakness, myalgias - Neurological Neurological ROS: weakness Palliative Care-Exam - Constitutional Vitals: Temp Pulse Resp BP Pulse Ox 98.6 F 158 19 136/82 91 08/10/17 08:04 08/10/17 08:04 08/10/17 08:04 08/10/17 08:04 08/10/17 08:04 General appearance: Present: mild distress (respirations 32 and rapid. Bilateral rales and frothy sputum.) - Head Head Exam: Present: atraumatic, normal inspection, normocephalic - Eye Eye exam: Present: PERRL Pupils: Present: PERRL - ENT ENT exam: Present: mucous membranes dry - Neck Neck exam: Present: full ROM - Respiratory Respiratory exam: Present: decreased breath sounds - Expanded Respiratory Exam Location: rales: Left, Right, Upper - Cardiovascular Cardiovascular exam: Present: +S1, +S2, tachycardia - Expanded Cardiovascular Exam Peripheral pulses: 1+: Femoral (L) PM, Femoral (R) PM, Posterior Tibialis (L), Posterior Tibialis (R), 2+: Carotid (L) PM, Carotid (R) PM, Radial (L), Radial ( R), Dorsalis Pedis (L) PM, Dorsalis Pedis (R) PM - GI/Abdominal Exam GI/Abdominal exam: Present: normal bowel sounds, soft - Catheter Type: Urethral ([place]) (clear yellow urine) - Extremities Exam Extremities exam: Present: joint swelling (right hand) - Neurological Exam Neurological exam: Present: altered - Expanded Neurological Exam Coma Scale Eye Opening: To Pain Coma Scale Motor Response: Withdraws to Pain Coma Scale Verbal Response: None Coma Scale Total: 7 - Psychiatric Psychiatric exam: Present: flat affect Consult Discharge Plan - Plan Referrals: NONE,PCP [Primary Care Provider] - Palliative Quality Palliative Quality: Screen for Code Status: Yes, Screen for Goals of Care: Yes, Screen for Pain: Yes, If Pain Regimen Started, Initiate Bowel Regimen: Yes, Screen for Nausea/Vomitting: Yes Code Status: 08/08/17 11:33 Resuscitation Status: Active [RES] Routine Comment: Resuscitation Status: DNR-Comfort Care
[2017-08-10] MEDS ORDERED: Atropine Sulfate 1% 40 DROP/2 ML BOTTLE SL PRN ×2 (13:23→17:01)
[2017-08-10] MEDS ORDERED: Glycopyrrolate 0.2 MG/ML VIAL IVP ONE (17:01)
--- NOTE | 2017-08-11 08:46 | Death Note ---
Discharge Sum: Summary - Date and Time Date of admission: 08/08/17 11:25 Date of : 08/10/17 Time of : 20:29 - Summary Details: 89-year-old female presented with chief complaint shortness of breath. Patient' s daughter stated for the last 48 hours she had difficulty breathing and increased confusion. Patient's daughter called EMS and en route the emergency room patient had a cardiac arrest, CPR was initiated and patient was intubated. ROSC was achieved. Patient's daughter stated that patient would not like to be intubated, sedated. Due to patient's severe condition including lactic acidosis, cardiopulmonary arrest, acute respiratory failure ICU sign artist states without aggressive measures patient would not have a chance of survival. The morning after admission patient was terminally extubated in the ICU. Family including daughter and 2 sons decided to transition patient into hospice care. Patient was Kept comfortable with fentanyl patch, Haldol as needed, scopolamine and atropine. Patient peacefully on 08/10/2017 at 20: 29 hours. - Additional Data Confirmation of as documented by pronouncing clinician: no pulse, no respirations, no heart sounds Family: at bedside Attending/PCP notified?: Yes Attending physician: Greg Lu MD Was code activated?: No Autopsy requested?: No Advance directives: Yes Hospice patient?: Yes Discharge Sum: Diag - PCOD Probable Cause of : Cardiorespiratory arrest Discharge Sum: Prov - Provider Primary care physician: PCP NONE Admitting clinician: Greg Lu Attending physician on admission: Greg Lu Consults: palliative consult
== END 2017-08-10 20:29 | DRG 189 ==
LOC: 2ANU 11:25
PROVIDERS: ADMIT Family Medicine Hospice and Palliative Medicine; ATTEND Family Medicine Hospice and Palliative Medicine